=== PATIENT | female | born 1955 ===

== ENCOUNTER 2016-08-17 12:34 | Inpatient (IN) | payer MEDICARE, MEDICAID ==
--- NOTE | 2016-08-17 12:58 | C.PDOC ---
Chief Complaint (Nursing): Weakness/Neurological Deficit Past Medical History - Medical History PMH: Arthritis, Asthma, Depression, HTN, Rheumatoid Arthritis Surgical History: Appendectomy, Cholecystectomy, Tonsillectomy - [facility] Procedures TETANUS TOXOID ADMINIST (08/10/14) Family History: States: Unknown Family Hx - Social History Hx Tobacco Use: No Hx Alcohol Use: No Hx Substance Use: No - Immunization History Hx Tetanus Toxoid Vaccination: No Hx Influenza Vaccination: No Hx Pneumococcal Vaccination: Yes
[2016-08-17] MEDS ORDERED: DiphenhydrAMINE 50 mg/ml Inj IVP STA (13:08)
--- NOTE | 2016-08-17 13:12 | C.PDOC ---
History Of Present Illness 61 yr old female with PMHx of HTN, presents to the ER with complaints of headache, blurry vision and left arm numbness since 10am this morning. Patient also complains of a mild headache last night. Denies fever, chest pain, SOB, nausea, vomiting or pain. Time Seen by Provider: 08/17/16 13:02 Chief Complaint (Nursing): Weakness/Neurological Deficit History Per: Patient History/Exam Limitations: no limitations Onset/Duration Of Symptoms: Sudden Onset (Since 10am ) Current Symptoms Are (Timing): Still Present Past Medical History Reviewed: Historical Data, Nursing Documentation, Vital Signs Vital Signs: Last Vital Signs Temp 98.2 F 08/17/16 13:07 Pulse 69 08/17/16 14:07 Resp 18 08/17/16 14:07 BP 127/76 08/17/16 14:07 Pulse Ox 97 08/17/16 14:17 - Medical History PMH: Arthritis, Asthma, Depression, HTN, Rheumatoid Arthritis Surgical History: Appendectomy, Cholecystectomy, Tonsillectomy - [facility] Procedures TETANUS TOXOID ADMINIST (08/10/14) Family History: States: No Known Family Hx - Social History Hx Tobacco Use: No Hx Alcohol Use: No Hx Substance Use: No - Immunization History Hx Tetanus Toxoid Vaccination: No Hx Influenza Vaccination: No Hx Pneumococcal Vaccination: Yes Review Of Systems Except As Marked, All Systems Reviewed And Found Negative. Constitutional: Negative for: Fever Eyes: Positive for: Vision Change (Blurry vision ) Cardiovascular: Negative for: Chest Pain Respiratory: Negative for: Shortness of Breath Gastrointestinal: Negative for: Nausea, Vomiting Musculoskeletal: Positive for: Other ((+) Left arm numbness. ) Neurological: Positive for: Headache. Negative for: Weakness, Numbness Physical Exam - Physical Exam Appears: Non-toxic, No Acute Distress Skin: Warm, Dry, No Rash Head: Atraumatic, Normacephalic Eye(s): bilateral: Normal Inspection, PERRL, EOMI Oral Mucosa: Moist Chest: Symmetrical, No Tenderness Cardiovascular: Rhythm Regular, No Murmur Respiratory: Normal Breath Sounds, No Rales, No Rhonchi, No Stridor, No Wheezing Extremity: Normal ROM, No Swelling Neurological/Psych: Oriented x3, Normal Speech, Normal Motor ED Course And Treatment - Laboratory Results Result Diagrams: 08/17/16 13:28 08/17/16 13:28 ECG: Interpreted By Me, Viewed By Me ECG Rhythm: Sinus Rhythm ECG Interpretation: Normal Interpretation Of ECG: No ST/T wave changes. Rate From EC (BPM) O2 Sat by Pulse Oximetry: 97 (RA ) Pulse Ox Interpretation: Normal - CT Scan/US CT - Head Other Rad Studies (CT/US): Read By Radiologist, Radiology Report Reviewed CT/US Interpretation: PROCEDURE: CT HEAD WITHOUT CONTRAST. HISTORY: Code stroke. COMPARISON: None available. TECHNIQUE: Axial computed tomography images were obtained through the head/brain without intravenous contrast. Radiation dose: Total exam DLP = 906 mGy-cm. This CT exam was performed using one or more of the following dose reduction techniques: Automated exposure control, adjustment of the mA and/or kV according to patient size, and/or use of iterative reconstruction technique. FINDINGS: HEMORRHAGE: No intracranial hemorrhage. BRAIN: No mass effect or edema. Scattered focal lucencies in the subcortical and periventricular white matter suggestive for chronic microvascular ischemic change. VENTRICLES: Unremarkable. No hydrocephalus. CALVARIUM: Unremarkable. PARANASAL SINUSES: Unremarkable as visualized. No significant inflammatory changes. MASTOID AIR CELLS: Unremarkable as visualized. No inflammatory changes. OTHER FINDINGS: None. IMPRESSION: Chronic microvascular ischemic changes. No evidence for acute intracranial hemorrhage. If focal neurologic deficit persists, consider MRI. These findings were discussed with doctor Agosto at 1:09 p.m. on 08/17/2016. NIHSS Stroke Scale - Date/Time Evaluation Performed Date Performed: 08/17/16 - How Severe is the Stoke Level of Consciousness: 0=Alert LOC to Questions: 0=Both comments correct LOC to commands: 0=Obeys both correctly Best Gaze: 0=Normal Visual: 0=No visual loss Facial: 0=Normal Motor Arm - Left: 0=No drift Motor Arm - Right: 0=No drift Motor Leg - Left: 0=No drift Motor Leg - Right: 0=No drift Limb Ataxia: 0=Absent Sensory: 1=Mild to moderate loss Best Language: 0=No aphasia Dysarthia: 0=Normal articulation Extinction & Inattention (Neglect): 0=Normal, no object Score: 1 Severity Of Stroke: 0= No Stroke rTPA Inclusion/Exclusion - Refusal of Treatment Patient Refused Treatment: No - Inclusion Criteria for Altepase Patient is 18 years or Older: Yes The Clinical Diagnosis of Ischemic Stroke That is Causing a Potentially Disabling Neurological Deficit: No Time of Onset is Well Established to be Less Than 270 Minute Before Treatment Would Begin: Yes Risk/Benefit Discussed With Patient/Family Member Present: Yes Medical Decision Making Medical Decision Making: ro cva - cdose stroke PLAN: * CT - Head * CXR * EKG * CBC * CMP * Troponin * Urinalysis * Benadryl IVP * Reglan IVP 200: discussed with dr verdin. no low nih, not tpa candidate. pt reports symptoms resolving. ass held as allergy. Disposition - Disposition Disposition: HOSPITALIZED Disposition Time: 14:16 Condition: STABLE - Clinical Impression Clinical Impression: Blurry vision, Numbness, UTI (urinary tract infection) - Scribe Statement The provider has reviewed the documentation as recorded by the Dgibgabo Laboy Provider Attestation: All medical record entries made by the Dgibe were at my direction and personally dictated by me. I have reviewed the chart and agree that the record accurately reflects my personal performance of the history, physical exam, medical decision making, and the department course for this patient. I have also personally directed, reviewed, and agree with the discharge instructions and disposition.
--- NOTE | 2016-08-17 13:15 | CT ---
PROCEDURE: CT HEAD WITHOUT CONTRAST. HISTORY: Code stroke COMPARISON: None available. TECHNIQUE: Axial computed tomography images were obtained through the head/brain without intravenous contrast. Radiation dose: Total exam DLP = 906 mGy-cm. This CT exam was performed using one or more of the following dose reduction techniques: Automated exposure control, adjustment of the mA and/or kV according to patient size, and/or use of iterative reconstruction technique. FINDINGS: HEMORRHAGE: No intracranial hemorrhage. BRAIN: No mass effect or edema. Scattered focal lucencies in the subcortical and periventricular white matter suggestive for chronic microvascular ischemic change. VENTRICLES: Unremarkable. No hydrocephalus. CALVARIUM: Unremarkable. PARANASAL SINUSES: Unremarkable as visualized. No significant inflammatory changes. MASTOID AIR CELLS: Unremarkable as visualized. No inflammatory changes. OTHER FINDINGS: None. IMPRESSION: Chronic microvascular ischemic changes. No evidence for acute intracranial hemorrhage. If focal neurologic deficit persists, consider MRI. These findings were discussed with doctor Agosto at 1:09 p.m. on 08/17/2016.
[2016-08-17] MEDS ORDERED: DiphenhydrAMINE 50 mg/ml Inj ONE ×2 (13:35→13:37)
[2016-08-17 13:38] LABS: BASO # 0.1 K/uL (0.0-0.2); BASO % 1.1 % (0.0-2.0); EOS # 0.1 K/uL (0.0-0.7); EOS % 0.9 % (0.0-4.0); HEMOGLOBIN 12.7 g/dL (11.0-16.0); LYMPH # 2.4 K/uL (1.0-4.3); LYMPH % 32.9 % (20.0-40.0); MEAN CELL VOLUME 93.4 fL (81.0-99.0); MEAN CORPUSCULAR HEMOGLOBIN 31.5 pg (27.0-31.0); MEAN CORPUSCULAR HGB CONC 33.8 g/dL (33.0-37.0); MEAN PLATELET VOLUME 8.5 fL (7.2-11.7); MONO # 0.4 K/uL (0.0-0.8); MONO % 5.6 % (0.0-10.0); NEUT # 4.3 K/uL (1.8-7.0); NEUT % 59.5 % (50.0-75.0); RBC 4.02 Mil/uL (3.80-5.20); RED CELL DISTRIBUTION WIDTH 13.5 % (11.5-14.5); WHITE BLOOD COUNT 7.3 K/uL (4.8-10.8)
[2016-08-17 13:43] LABS: SQUAMOUS EPITHIAL 5 /hpf (0-5); URINE BACTERIA FEW (<OCC); URINE BILIRUBIN NEGATIVE (NEGATIVE); URINE BLOOD NEGATIVE (NEGATIVE); URINE CLARITY Hazy (Clear); URINE COLOR Straw (YELLOW); URINE GLUCOSE (UA) NORMAL (Normal); URINE LEUKOCYTE ESTERASE 2+ Leu/uL (Negative); URINE NITRATE NEGATIVE (NEGATIVE); URINE PROTEIN NEGATIVE (NEGATIVE); URINE UROBILINOGEN NORMAL mg/dL (0.2-1.0)
[2016-08-17 13:49] LABS: PROTHROMBIN TIME 11.3 SECONDS (9.7-12.2)
[2016-08-17] MEDS ORDERED: Ciprofloxacin 400mg/200ml D5W 400 MG/200 ML BAG IVPB STA (13:54)
[2016-08-17 13:55] LABS: ALBUMIN 3.7 g/dL (3.5-5.0)
[2016-08-17 13:58] LABS: ALB/GLOB RATIO 1.1 (1.0-2.1); AST/SGOT 25 U/L (14-36); GFR AFRICAN-AMERICAN > 60; GFR NON-AFRICAN AMERICAN > 60
[2016-08-17 13:59] LABS: ALT/SGPT 20 U/L (9-52); BLOOD UREA NITROGEN 16 mg/dL (7-17); CALCIUM 9.1 mg/dl (8.6-10.4); HDL CHOLESTEROL 32 mg/dL (30-70)
[2016-08-17 14:10] LABS: LDL CHOLESTEROL 111 mg/dL (0-129)
[2016-08-17] MEDS ORDERED: Ciprofloxacin 400mg/200ml D5W 400 MG/200 ML BAG IVPB ONE (14:16)
--- NOTE | 2016-08-17 14:52 | CP.PCM.CON ---
History of Present Illness - History of Present Illness History of Present Illness: HAD FRONTAL HEADACHE LAST NIGHT AND WOKE UP WITH BLURRED VISION AND RIGHT ARM TINGLING NEW EPISODE NO HX MIGRAINE SYMPTOMS RESOLVED CODE STROKE WAS CALLED AND CAT WAS NEGATIVE Past Patient History - Infectious Disease Hx of Infectious Diseases: None - Past Social History Smoking Status: Never Smoked - CARDIAC Hx Cardiac Disorders: No Hx Angina: No Hx Atrial Fibrillation: No Hx Heart Attack: No Hx Hypertension: Yes - PULMONARY Hx Asthma: Yes - NEUROLOGICAL Hx Neurological Disorder: No Hx Migraine: No - ENDOCRINE/METABOLIC Hx Diabetes Mellitus Type 2: No (PRE DIABETIC ) - MUSCULOSKELETAL/RHEUMATOLOGICAL Hx Arthritis: Yes Hx Degenerative Joint Disease: Yes (RA) Hx Rheumatoid Arthritis: Yes - PSYCHIATRIC Hx Anxiety: Yes Hx Depression: Yes Hx Substance Use: No - SURGICAL HISTORY Hx Appendectomy: Yes Hx Carotid Endarterectomy: No Hx Cholecystectomy: Yes Hx Tonsillectomy: Yes - ANESTHESIA Hx Anesthesia: Yes Hx Anesthesia Reactions: No Meds Allergies/Adverse Reactions: Allergies Allergy/AdvReac Type Severity Reaction Status Date / Time acetaminophen [From Percocet] Allergy Verified 08/17/16 12:47 aspirin Allergy Verified 08/17/16 12:47 ceftriaxone Allergy Verified 08/17/16 12:47 oxycodone [From Percocet] Allergy Verified 08/17/16 12:47 Penicillins Allergy Verified 08/17/16 12:47 - Medications Medications: Current Medications Clopidogrel Bisulfate (Plavix) 75 mg PO STAT STA Stop: 08/17/16 14:48 Famotidine (Pepcid) 20 mg PO BID [facility] Heparin Sodium (Porcine) (Heparin) 5,000 units SC Q8 VERO Ciprofloxacin (Cipro 400mg/200ml Dsw) 400 mg in 200 mls @ 133 mls/hr IVPB STAT STA Stop: 08/17/16 15:24 Last Admin: 08/17/16 14:22 Dose: 133 mls/hr Physical Exam - Constitutional Appears: Well - Head Exam Head Exam: ATRAUMATIC, NORMAL INSPECTION - Eye Exam Eye Exam: EOMI, Normal appearance, PERRL Pupil Exam: NORMAL ACCOMODATION - Respiratory Exam Respiratory Exam: NORMAL BREATHING PATTERN - Cardiovascular Exam Cardiovascular Exam: REGULAR RHYTHM - Expanded Neurological Exam Expanded Patient oriented to: person, place, time Cranial nerves: EOM's Intact: Normal, Facial Palsey w/Forehead Movement: Normal , Facial Palsey w/o Forehead Movement: Normal, Facial Sensation: Normal, Gag Reflex: Normal, Nystagmus: Normal, Tongue Deviation: Normal Ataxia: No Cerebellar Function: Finger to Nose: Normal, Romberg: Normal Upper motor neuron: Babinski Sign: Normal, Noel Neglect: Normal, Pronator Drift : Normal, Sensory Extinction: Normal Sensory exam: Lower Extremity Temperature: Abnormal Right, Abnormal Left ( NEUROPATHY) Neuro motor strength exam: Left Upper Extremity: 5, Right Upper Extremity: 5, Left Lower Extremity: 5, Right Lower Extremity: 5 DTR: Achilles Tendon Left: 0, Achilles Tendon Right: 0, Bicep Left: 1+, Bicep Right: 1+, Brachioradialis Left: 1+, Brachioradialis Right: 1+, Patellar Left: 1 +, Patellar Right: 1+, Tricep Left: 1+, Tricep Right: 1+ Results - Vital Signs Recent Vital Signs: Last Vital Signs Temp 98.2 F 08/17/16 13:07 Pulse 69 08/17/16 14:07 Resp 18 08/17/16 14:07 BP 127/76 08/17/16 14:07 Pulse Ox 97 08/17/16 14:34 - Labs Result Diagrams: 08/17/16 13:28 08/17/16 13:28 - Imaging and Cardiology CT scan - head Additional comment: NEGATIVE FOR ACUTE BLEED Assessment & Plan - Assessment and Plan (Free Text) Assessment: TIA - LEFT CEREBRAL DYSFUNCTION PLAVIX DIABETIC AND WEIGHT CONTROL DO MRI AND CAROTID /ECHO OBSERVATION X24 HRS IF STABLE MEDICALLY DC HOME AM AND FOLLOW UP AN OP DISCUSSED WITH RESIDENT
--- NOTE | 2016-08-17 14:58 | CP.PCM.HP ---
Addendum entered and electronically signed by Donald Cruz DO 08/18/16 07:19: NIH Stroke scale: Level of Consciousness: 0=Alert LOC to Questions: 0=Both comments correct LOC to commands: 0=Obeys both correctly Best Gaze: 0=Normal Visual: 0=No visual loss Facial: 0=Normal Motor Arm - Left: 0=No drift Motor Arm - Right: 0=No drift Motor Leg - Left: 0=No drift Motor Leg - Right: 0=No drift Limb Ataxia: 0=Absent Sensory: 0=No loss Best Language: 0=No aphasia Dysarthia: 0=Normal articulation Extinction & Inattention (Neglect): 0=Normal, no object Score: 0 Severity Of Stroke: 0= No Stroke Neuro examination: EOMI, PERRLA CN II-XII grossly intact Motor strength 5/5 in UE and LE Sensation intact in UE and LE Deep tendon reflexes intact 2/5 Babinski test negative No pronator drift, rapid hand movement normal heel to lofton normal, gait normal Original Note: <Donald Cruz - Last Filed: 08/17/16 20:14> History of Present Illness - History of Present Illness History of Present Illness: cc: "left arm numbness" HPI: Patient is a 61 year old female with PMHx of hypertension, heart murmur, depression and asthma, presenting to the ED complaining of a headache that started last night.She said she was able to sleep, but this morning the headache got worse. She states that this morning, around 10am, her left arm started feeling numb and heavy, like it was sleeping. She says both symptoms resolved by the time she came to the ED. She currently has no acute complaints. She denies chest pain, palpitations, dyspnea, blurry vision, difficulty speaking / understanding, gait abnormalities. PMD: Dr. Oswald PMHx: As stated above PSHx: appendectomy, cholecystectomy, tubal ligation, Allergies: acetaminophen, aspirin, ceftriaxone, oxycodone, morphine, penicillin , 4 types of antihypertensives (patient does not know which) Fam hx: father- DM, mother- alzheimers social: denies smoking, alcohol, drug hx. unemployed. Present on Admission - Present on Admission Any Indicators Present on Admission: No Review of Systems - Constitutional Constitutional: absent: Anorexia, Chills, Weight Loss - EENT Eyes: absent: Blurred Vision, Change in Vision - Cardiovascular Cardiovascular: absent: Chest Pain, Claudication, Irregular Heart Rhythm, Leg Edema, Palpitations, Pedal Edema - Respiratory Respiratory: absent: Cough, Dyspnea, Hemoptysis, Wheezing - Gastrointestinal Gastrointestinal: absent: Abdominal Pain, Constipation, Dyspepsia, Melena, Nausea, Temesmus - Genitourinary Genitourinary: absent: Difficulty Urinating, Dysuria, Flank Pain - Musculoskeletal Musculoskeletal: absent: Atrophy, Myalgias, Numbness, Tingling - Integumentary Integumentary: absent: Skin Ulcer, Sores, Striae, Swelling, Wounds - Neurological Neurological: absent: Abnormal Movements, Tingling, Tremor, Weakness - Psychiatric Psychiatric: absent: Anhedonia, Mood Swings, Panic Attacks, Suicidal Ideation, Tactile Hallucinations - Endocrine Endocrine: absent: Fatigue, Palpitations Past Patient History - Infectious Disease Hx of Infectious Diseases: None - Past Social History Smoking Status: Never Smoked Chewing Tobacco Use: No Cigar Use: No Alcohol: None Drugs: Denies - CARDIAC Hx Hypertension: Yes - PULMONARY Hx Asthma: Yes - MUSCULOSKELETAL/RHEUMATOLOGICAL Hx Arthritis: Yes Hx Rheumatoid Arthritis: Yes - PSYCHIATRIC Hx Depression: Yes Hx Substance Use: No - SURGICAL HISTORY Hx Appendectomy: Yes Hx Cholecystectomy: Yes Hx Tonsillectomy: Yes - ANESTHESIA Hx Anesthesia: Yes Hx Anesthesia Reactions: No Meds Allergies/Adverse Reactions: Allergies Allergy/AdvReac Type Severity Reaction Status Date / Time acetaminophen [From Percocet] Allergy Verified 08/17/16 12:47 aspirin Allergy Verified 08/17/16 12:47 ceftriaxone Allergy Verified 08/17/16 12:47 oxycodone [From Percocet] Allergy Verified 08/17/16 12:47 Penicillins Allergy Verified 08/17/16 12:47 Physical Exam - Constitutional Appears: Non-toxic, No Acute Distress - Head Exam Head Exam: ATRAUMATIC, NORMAL INSPECTION, NORMOCEPHALIC - Eye Exam Pupil Exam: NORMAL ACCOMODATION, PERRL - ENT Exam ENT Exam: Mucous Membranes Moist - Neck Exam Neck exam: Positive for: Normal Inspection - Respiratory Exam Respiratory Exam: Clear to Auscultation Bilateral, NORMAL BREATHING PATTERN. absent: Prolonged Expiratory Phase, Rales, Rhonchi, Wheezes - Cardiovascular Exam Cardiovascular Exam: REGULAR RHYTHM, +S1, +S2 - GI/Abdominal Exam GI & Abdominal Exam: Normal Bowel Sounds, Soft. absent: Distended, Firm, Guarding, Hernia, Tenderness - Extremities Exam Extremities exam: Positive for: normal capillary refill, pedal pulses present - Neurological Exam Neurological exam: Alert, CN II-XII Intact, Oriented x3 - Psychiatric Exam Psychiatric exam: Normal Affect, Normal Mood - Skin Skin Exam: Dry, Intact, Normal Color, Warm Results - Vital Signs Recent Vital Signs: Last Vital Signs Temp 98.2 F 08/17/16 13:07 Pulse 69 08/17/16 14:07 Resp 18 08/17/16 14:07 BP 127/76 08/17/16 14:07 Pulse Ox 97 08/17/16 14:34 - Labs Result Diagrams: 08/17/16 13:28 08/17/16 13:28 Assessment & Plan (1) TIA (transient ischemic attack) Status: Acute Comment: Consult Neuro- Dr. Robles. CT Head- 08/17/16- Chronic microvascular ischemic changes. No evidence of acute intracranial hemorrhage (Please see full report). MRI Brain- there are multiple small focal areas of increased T2 signal scattered about the deep and subcortical white matter as well as both basal nuclei. Uncertain etiology. Mild generalized volume loss (Please see full report). f/u carotid dopplers. f/u 2d echo. Started on Plavix 75mg PO Daily. Start Crestor 2.5 Q2d. f/u ROMIs/EKGs x 2. 1st MICHAELA negative, EKG NSR (2) History of hypertension Status: Acute Comment: Blood pressure is controlled. Will continue to monitor. Patient reported allergies to four medications, but is unsure of what their names are. (3) Asthma Status: Acute Comment: Albuterol Q6h PRN (4) Depression Status: Acute Comment: Paroxetine 60mg PO Daily (5) Prophylactic measure Status: Acute Comment: Pepcid 20mg PO BID. Heparin 5000U SC Q8h. SCDs <Elle Thornton V - Last Filed: 08/18/16 13:43> Results - Vital Signs Recent Vital Signs: Last Vital Signs Temp 97.8 F 08/18/16 08:51 Pulse 68 08/18/16 08:51 Resp 20 08/18/16 08:51 BP 112/75 08/18/16 08:51 Pulse Ox 96 08/18/16 08:51 - Labs Result Diagrams: 08/18/16 07:56 08/18/16 07:56 Labs: Laboratory Results - last 24 hr 08/17/16 08/17/16 08/17/16 14:38 16:30 16:30 WBC RBC Hgb Hct MCV MCH MCHC RDW Plt Count MPV Neut % (Auto) Lymph % (Auto) Mclennan % (Auto) Eos % (Auto) Baso % (Auto) Neut # Lymph # Mclennan # Eos # Baso # ESR 29 H Sodium Potassium Chloride Carbon Dioxide Anion Gap BUN Creatinine Est GFR ( Amer) Est GFR (Non-Af Amer) POC Glucose (mg/dL) Random Glucose Hemoglobin A1c 5.9 Calcium Magnesium Total Bilirubin AST ALT Alkaline Phosphatase Total Creatine Kinase CK-MB (Mass) Troponin I, Quant Total Protein Albumin Globulin Albumin/Globulin Ratio Vitamin B12 Folate Homocysteine Free T4 TSH 3rd Generation Rheum Arthritis Panel Negative RPR Nonreactive 08/17/16 08/17/16 08/17/16 16:30 16:30 21:11 WBC RBC Hgb Hct MCV MCH MCHC RDW Plt Count MPV Neut % (Auto) Lymph % (Auto) Mclennan % (Auto) Eos % (Auto) Baso % (Auto) Neut # Lymph # Mclennan # Eos # Baso # ESR Sodium Potassium Chloride Carbon Dioxide Anion Gap BUN Creatinine Est GFR ( Amer) Est GFR (Non-Af Amer) POC Glucose (mg/dL) Random Glucose Hemoglobin A1c Calcium Magnesium Total Bilirubin AST ALT Alkaline Phosphatase Total Creatine Kinase 60 CK-MB (Mass) 0.36 Troponin I, Quant < 0.0120 Total Protein Albumin Globulin Albumin/Globulin Ratio Vitamin B12 731 Folate 7.7 Homocysteine 12.6 Free T4 1.02 TSH 3rd Generation 3.67 Rheum Arthritis Panel RPR 08/18/16 08/18/16 08/18/16 05:54 07:56 07:56 WBC 7.3 RBC 3.99 Hgb 12.5 Hct 37.6 MCV 94.3 MCH 31.3 H MCHC 33.2 RDW 13.5 Plt Count 253 MPV 8.4 Neut % (Auto) 51.4 Lymph % (Auto) 41.3 H Mclennan % (Auto) 5.4 Eos % (Auto) 1.5 Baso % (Auto) 0.4 Neut # 3.7 Lymph # 3.0 Mclennan # 0.4 Eos # 0.1 Baso # 0.0 ESR Sodium 140 Potassium 4.0 Chloride 106 Carbon Dioxide 27 Anion Gap 10 BUN 12 Creatinine 0.7 Est GFR ( Amer) > 60 Est GFR (Non-Af Amer) > 60 POC Glucose (mg/dL) Random Glucose 87 Hemoglobin A1c Calcium 8.8 Magnesium 2.1 Total Bilirubin 0.6 AST 19 ALT 21 Alkaline Phosphatase 79 Total Creatine Kinase 54 CK-MB (Mass) 0.25 Troponin I, Quant < 0.0120 Total Protein 6.2 L Albumin 3.2 L Globulin 3.1 Albumin/Globulin Ratio 1.0 Vitamin B12 Folate Homocysteine Free T4 TSH 3rd Generation 1.49 Rheum Arthritis Panel RPR 08/18/16 12:01 WBC RBC Hgb Hct MCV MCH MCHC RDW Plt Count MPV Neut % (Auto) Lymph % (Auto) Mclennan % (Auto) Eos % (Auto) Baso % (Auto) Neut # Lymph # Mclennan # Eos # Baso # ESR Sodium Potassium Chloride Carbon Dioxide Anion Gap BUN Creatinine Est GFR ( Amer) Est GFR (Non-Af Amer) POC Glucose (mg/dL) 105 Random Glucose Hemoglobin A1c Calcium Magnesium Total Bilirubin AST ALT Alkaline Phosphatase Total Creatine Kinase CK-MB (Mass) Troponin I, Quant Total Protein Albumin Globulin Albumin/Globulin Ratio Vitamin B12 Folate Homocysteine Free T4 TSH 3rd Generation Rheum Arthritis Panel RPR Attending/Attestation - Attestation I have personally seen and examined this patient.: Yes I have fully participated in the care of the patient.: Yes I have reviewed all pertinent clinical information: Yes Notes (Text): This is late computer entry for 08/17/16. Patient seen, examined, and case discussed with day-time resident. patient seem, examined on at approximately 5:30PM following completion of Brain MRI. Patient seen, and evaluated by neurology in the emergency room Patient completed Brain MRI yesterday. Patient ordered for echo and cartoid duplex, likely wont be completed until Friday. Patient has multiple drug allergies including tylenol, aspirin, rocephin, oxycodone, and pencillin. Patient also reports she has allergies to anti- hypertensives but cannot remember their names. Per neurology, patient recommended to start Plavix. Patient denies any bleeding problems and denies allergies to Plavix. Assessment/Plan (1) TIA (transient ischemic attack) Status: Acute Comment: Consult Neurolog- Dr. Robles-->help appreciated CT Head (08/17/16)- Chronic microvascular ischemic changes. No evidence of acute intracranial hemorrhage (Please see full report). MRI Brain (08/17/16)- there are multiple small focal areas of increased T2 signal scattered about the deep and subcortical white matter as well as both basal nuclei. Uncertain etiology. Mild generalized volume loss (Please see full report ). Ordered for f/u carotid dopplers. f/u 2d echo. Started on Plavix 75mg PO Daily. Start Crestor 2.5 Q2day per recommendation by neurology. f/u ROMIs/EKGs x 2, q 6hours. 1st MICHAELA negative, EKG NSR (2) History of hypertension Status: Chronic Comment: Blood pressure is controlled. Will continue to monitor. Patient reported allergies to four medications, but is unsure of what their names are. (3) Asthma Status: Chronic Comment: Albuterol Q6h PRN shortness of breathe Patient is not exacerbation (4) Depression Status: Chronic Comment: Patient reports she takes (1) 40mg tab and (1) 60mg PO tab together at night. Patient given max dose of 60mg to start until we confirm her medication list Paroxetine 60mg PO Daily Patient's depression is stable. Denies HI/denies SI. (5) Prophylactic measure Status: Acute Comment: Pepcid 20mg PO BID for GI ppx Heparin 5000U SC Q8h for DVT ppx SCDs b/l
--- NOTE | 2016-08-17 15:40 | RAD ---
HISTORY: code stroke COMPARISON: 07/31/2013 FINDINGS: LUNGS: Mild venous congestion. Right hilar prominence. Patchy increased markings at the left lung base. PLEURA: As above. CARDIOVASCULAR: Normal. OSSEOUS STRUCTURES: No significant abnormalities. VISUALIZED UPPER ABDOMEN: Normal. OTHER FINDINGS: None. IMPRESSION: Mild venous congestion. Right hilar prominence. Patchy increased markings at the left lung base.
--- NOTE | 2016-08-17 16:09 | MRI ---
PROCEDURE: MRI BRAIN WITHOUT CONTRAST HISTORY: stroke - left subcortical COMPARISON: Comparison made with prior CT scan of the brain dated 08/17/2016 TECHNIQUE: Multiplanar, multisequence MR images of the brain were obtained without intravenous contrast enhancement. Study is somewhat limited by motion artifact. FINDINGS: HEMORRHAGE: No acute parenchymal, subarachnoid or extra-axial hemorrhage. No evidence of hemosiderin deposition identified on gradient echo weighted sequence. DWI: No evidence of an acute or early subacute infarction seen on diffusion imaging. . BRAIN PARENCHYMA: Multiple round/elliptical shaped small focal areas of increased T2 signal seen scattered about the deep and subcortical white matter and basal nuclei both cerebral hemispheres. At additionally, slightly confluent prolonged T2 signal changes seen in the periventricular white matter most conspicuous in the right periventricular frontal horn white matter. Findings are nonspecific though could represent chronic sequela of small vessel disease. Rule out sequela of old trauma, migraine headaches, post infectious/ inflammatory or atypical presentation of a demyelinating disease process. Mild generalized volume loss Partially empty sella. VENTRICLES: No evidence of obstructive hydrocephalus CRANIUM: Unremarkable. ORBITS: Grossly unremarkable. PARANASAL SINUSES/MASTOIDS: Clear VASCULAR SYSTEM: Visualized major vascular flow voids at skull base are patent. OTHER FINDINGS: None. IMPRESSION: There are multiple small focal areas of increased T2 signal scattered about the deep and subcortical white matter as well both basal nuclei. Findings are of uncertain etiology though could represent chronic sequela of small vessel disease. Rule out sequela of old trauma, migraine headaches, post infectious/ inflammatory or atypical presentation of a demyelinating disease process. Mild generalized volume loss.
[2016-08-17 17:14] LABS: FREE T4 1.02 ng/dL (0.78-2.19)
[2016-08-17] MEDS ORDERED: Albuterol 0.083% Inhal Sol (2.5 mg/3 mL) UD INH PRN (17:21)
[2016-08-17 18:04] LABS: FOLATE 7.7 ng/mL
[2016-08-17 19:11] LABS: RAPID PLASMA REAGIN NONREACTIVE (NONREACTIVE)
[2016-08-17 21:40] LABS: CK-MB 0.36 ng/mL (0.0-3.38)
[2016-08-17] MEDS: Rosuvastatin Calcium 2.5 mg Tab PO SCH (22:22)
[2016-08-18 06:21] LABS: CK-MB 0.25 ng/mL (0.0-3.38)
[2016-08-18 08:12] LABS: BASO % 0.4 % (0.0-2.0); EOS # 0.1 K/uL (0.0-0.7); EOS % 1.5 % (0.0-4.0); HEMOGLOBIN 12.5 g/dL (11.0-16.0); LYMPH % 41.3 % (20.0-40.0); MEAN CELL VOLUME 94.3 fL (81.0-99.0); MEAN CORPUSCULAR HEMOGLOBIN 31.3 pg (27.0-31.0); MEAN CORPUSCULAR HGB CONC 33.2 g/dL (33.0-37.0); MEAN PLATELET VOLUME 8.4 fL (7.2-11.7); MONO # 0.4 K/uL (0.0-0.8); MONO % 5.4 % (0.0-10.0); NEUT # 3.7 K/uL (1.8-7.0); NEUT % 51.4 % (50.0-75.0); NRBC % 0.1 % (0.0-2.0); RBC 3.99 Mil/uL (3.80-5.20); RED CELL DISTRIBUTION WIDTH 13.5 % (11.5-14.5); WHITE BLOOD COUNT 7.3 K/uL (4.8-10.8)
[2016-08-18 08:24] LABS: ALBUMIN 3.2 g/dL (3.5-5.0)
[2016-08-18 08:27] LABS: ALT/SGPT 21 U/L (9-52); AST/SGOT 19 U/L (14-36); BLOOD UREA NITROGEN 12 mg/dL (7-17); GFR AFRICAN-AMERICAN > 60; GFR NON-AFRICAN AMERICAN > 60
[2016-08-18 08:28] LABS: CALCIUM 8.8 mg/dl (8.6-10.4); MAGNESIUM 2.1 mg/dL (1.6-2.3)
--- NOTE | 2016-08-18 15:19 | CP.PCM.PN ---
Subjective - Date & Time of Evaluation Date of Evaluation: 08/18/16 Time of Evaluation: 14:30 - Subjective Subjective: SEEN WITH HER FRIEND MILD HEADACHE 5/10 FEW HOURS AGO OTHER MARQUES NO SYMPTOMS EXAM UNCHANGED WORK UP SMALL VESSEL DISEASE ? ON PLAVIX BP, WEIGHT, SUGAR CONTROL BEEN DISCUSSED MEDICALLY STABLE SHE CAN BE DC AND FOLLOW UP OP Objective - Vital Signs/Intake and Output Vital Signs (last 24 hours): Temp Pulse Resp BP Pulse Ox 97.8 F 68 20 112/75 96 08/18/16 08:51 08/18/16 08:51 08/18/16 08:51 08/18/16 08:51 08/18/16 08:51 - Medications Medications: Current Medications Albuterol Sulfate (Albuterol 0.083% Inhal Ronda (2.5 Mg/3 Ml) Ud) 2.5 mg INH RQ6 PRN PRN Reason: Shortness of Breath Clopidogrel Bisulfate (Plavix) 75 mg PO DAILY [facility] Last Admin: 08/18/16 09:29 Dose: 75 mg Famotidine (Pepcid) 20 mg PO BID [facility] Last Admin: 08/18/16 09:27 Dose: 20 mg Heparin Sodium (Porcine) (Heparin) 5,000 units SC Q8 [facility] Last Admin: 08/18/16 14:22 Dose: 5,000 units Paroxetine HCl (Paxil) 60 mg PO DAILY [facility] Last Admin: 08/18/16 09:29 Dose: Not Given Rosuvastatin Calcium (Crestor) 2.5 mg PO Q48H [facility] Last Admin: 08/17/16 22:22 Dose: 2.5 mg - Labs Labs: 08/18/16 07:56 08/18/16 07:56 PT 11.3 SECONDS (9.7-12.2) 08/17/16 13:28 INR 1.0 08/17/16 13:28 APTT 31 SECONDS (21-34) 08/17/16 13:28
--- NOTE | 2016-08-18 17:11 | CP.PCM.PN ---
<Donald Cruz - Last Filed: 08/18/16 17:11> Subjective - Date & Time of Evaluation Date of Evaluation: 08/18/16 Time of Evaluation: 08:10 - Subjective Subjective: Medicine Note- hospitalist service Patient was seen and exmained at bedside. Patient reports she has a mild headache at the moment. Otherwise no acute complaints. Patient reports she slept well, no events overnight. Objective - Vital Signs/Intake and Output Vital Signs (last 24 hours): Temp Pulse Resp BP Pulse Ox 97.8 F 98 H 20 112/75 96 08/18/16 08:51 08/18/16 16:00 08/18/16 08:51 08/18/16 08:51 08/18/16 08:51 - Medications Medications: Current Medications Albuterol Sulfate (Albuterol 0.083% Inhal Ronda (2.5 Mg/3 Ml) Ud) 2.5 mg INH RQ6 PRN PRN Reason: Shortness of Breath Clopidogrel Bisulfate (Plavix) 75 mg PO DAILY [facility] Last Admin: 08/18/16 09:29 Dose: 75 mg Famotidine (Pepcid) 20 mg PO BID [facility] Last Admin: 08/18/16 09:27 Dose: 20 mg Heparin Sodium (Porcine) (Heparin) 5,000 units SC Q8 [facility] Last Admin: 08/18/16 14:22 Dose: 5,000 units Paroxetine HCl (Paxil) 60 mg PO DAILY [facility] Last Admin: 08/18/16 09:29 Dose: Not Given Rosuvastatin Calcium (Crestor) 2.5 mg PO Q48H [facility] Last Admin: 08/17/16 22:22 Dose: 2.5 mg - Labs Labs: 08/18/16 07:56 08/18/16 07:56 PT 11.3 SECONDS (9.7-12.2) 08/17/16 13:28 INR 1.0 08/17/16 13:28 APTT 31 SECONDS (21-34) 08/17/16 13:28 - Constitutional Appears: Non-toxic, No Acute Distress - Head Exam Head Exam: ATRAUMATIC, NORMAL INSPECTION, NORMOCEPHALIC - Eye Exam Pupil Exam: NORMAL ACCOMODATION, PERRL - ENT Exam ENT Exam: Mucous Membranes Moist - Respiratory Exam Respiratory Exam: Clear to Ausculation Bilateral, NORMAL BREATHING PATTERN. absent: Prolonged Expiratory Phase, Rales, Rhonchi, Wheezes - Cardiovascular Exam Cardiovascular Exam: REGULAR RHYTHM, +S1, +S2 - GI/Abdominal Exam GI & Abdominal Exam: Soft, Normal Bowel Sounds. absent: Guarding, Tenderness, Diminished Bowel Sounds, Hernia, Hyperactive Bowel Sounds, Hypoactive Bowel Sounds - Extremities Exam Extremities Exam: Normal Capillary Refill, Normal Inspection - Neurological Exam Neurological Exam: Alert, Awake, CN II-XII Intact, Oriented x3, Reflexes Normal. absent: Motor Sensory Deficit Neuro motor strength exam: Left Upper Extremity: 5, Right Upper Extremity: 5, Left Lower Extremity: 5, Right Lower Extremity: 5 - Psychiatric Exam Psychiatric exam: Normal Affect, Normal Mood - Skin Skin Exam: Dry, Intact, Normal Color, Warm Assessment and Plan (1) TIA (transient ischemic attack) Status: Acute (2) History of hypertension Status: Acute (3) Asthma Status: Acute (4) Depression Status: Acute (5) Prophylactic measure Status: Acute - Assessment and Plan (Free Text) Assessment: (1) TIA (transient ischemic attack) Status: Acute Comment: Consult Neuro- Dr. Robles. CT Head- 08/17/16- Chronic microvascular ischemic changes. No evidence of acute intracranial hemorrhage (Please see full report). MRI Brain- there are multiple small focal areas of increased T2 signal scattered about the deep and subcortical white matter as well as both basal nuclei. Uncertain etiology. Mild generalized volume loss (Please see full report). f/u carotid dopplers. f/u 2d echo. Started on Plavix 75mg PO Daily. Start Crestor 2.5 Q2d. ROMIs negative x 3 EKG NSR (2) History of hypertension Status: Acute Comment: Blood pressure is controlled. Will continue to monitor. Patient reported allergies to four medications, but is unsure of what their names are. (3) Asthma Status: Acute Comment: Albuterol Q6h PRN (4) Depression Status: Acute Comment: Paroxetine 60mg PO Daily (5) Prophylactic measure Status: Acute Comment: Pepcid 20mg PO BID. Heparin 5000U SC Q8h. SCDs Disposition: Once Echo and carotid dopplers are read and reported normal, patient will be discharged home. <Elle Thornton V - Last Filed: 08/18/16 17:31> Objective - Vital Signs/Intake and Output Vital Signs (last 24 hours): Temp Pulse Resp BP Pulse Ox 98.5 F 98 H 20 112/74 95 08/18/16 15:30 08/18/16 16:00 08/18/16 15:30 08/18/16 15:30 08/18/16 15:30 - Medications Medications: Current Medications Albuterol Sulfate (Albuterol 0.083% Inhal Ronda (2.5 Mg/3 Ml) Ud) 2.5 mg INH RQ6 PRN PRN Reason: Shortness of Breath Clopidogrel Bisulfate (Plavix) 75 mg PO DAILY [facility] Last Admin: 08/18/16 09:29 Dose: 75 mg Famotidine (Pepcid) 20 mg PO BID [facility] Last Admin: 08/18/16 09:27 Dose: 20 mg Heparin Sodium (Porcine) (Heparin) 5,000 units SC Q8 [facility] Last Admin: 08/18/16 14:22 Dose: 5,000 units Paroxetine HCl (Paxil) 60 mg PO DAILY [facility] Last Admin: 08/18/16 09:29 Dose: Not Given Rosuvastatin Calcium (Crestor) 2.5 mg PO Q48H [facility] Last Admin: 08/17/16 22:22 Dose: 2.5 mg - Labs Labs: 08/18/16 07:56 08/18/16 07:56 PT 11.3 SECONDS (9.7-12.2) 08/17/16 13:28 INR 1.0 08/17/16 13:28 APTT 31 SECONDS (21-34) 08/17/16 13:28 Attending/Attestation - Attestation I have personally seen and examined this patient.: Yes I have fully participated in the care of the patient.: Yes I have reviewed all pertinent clinical information, including history, physical exam and plan: Yes Notes (Text): Patient seen, examined and case discussed with day-time resident. Patient seen at bedside. She reports she slept well. Patient denies acute complaints. Patient is pending echocardiogram and cartoid duplex. Pending the results of these imaging; patient is a possible discharge tomorrow. Assessment/Plan (1) TIA (transient ischemic attack) Status: Acute Comment: 08/18: Pending echo and carotid duplex. 2nd and 3rd EKG note not performed; ordered for repeat EKG today; MICHAELA X3 negative; continue Plavix 75mg PO daily; TSH: 1.49, RPR: NR, RA: negative, MADDY 6 pending 08/17: Consult Neurology- Dr. Robles-->help appreciated CT Head (08/17/16)- Chronic microvascular ischemic changes. No evidence of acute intracranial hemorrhage (Please see full report). MRI Brain (08/17/16)- there are multiple small focal areas of increased T2 signal scattered about the deep and subcortical white matter as well as both basal nuclei. Uncertain etiology. Mild generalized volume loss (Please see full report). Ordered for f/u carotid dopplers. f/u 2d echo. Started on Plavix 75mg PO Daily. Start Crestor 2.5 Q2day per recommendation by neurology. f/u ROMIs/EKGs x 2, q 6hours. 1st MICHAELA negative, EKG NSR (2) History of hypertension Status: Chronic Comment: 08/18: Continue current management. Will need to follow-up with pharmacy tomorrow to see which anti-hypertensives patient is allergic to and update in EMR 08/17: Blood pressure is controlled. Will continue to monitor. Patient reported allergies to four medications, but is unsure of what their names are. (3) Asthma Status: Chronic Comment: 08/18 Patient is not in acute exacerbation 08/17 Albuterol Q6h PRN shortness of breathe Patient is not exacerbation (4) Depression Status: Chronic Comment: 08/18 Continue current management. Fol 08/17 Patient reports she takes (1) 40mg tab and (1) 60mg PO tab together at night. Patient given max dose of 60mg to start until we confirm her medication list Paroxetine 60mg PO Daily Patient's depression is stable. Denies HI/denies SI. (5) Asymptomatic bacteriuria 08/18: Patient is not symptomatic of urinary tract infection (6) Prophylactic measure Status: Acute Comment: 08/18 continue current management 08/17 Pepcid 20mg PO BID for GI ppx Heparin 5000U SC Q8h for DVT ppx SCDs b/l
[2016-08-19 06:33] LABS: BASO % 0.5 % (0.0-2.0); EOS # 0.1 K/uL (0.0-0.7); EOS % 1.8 % (0.0-4.0); HEMOGLOBIN 12.7 g/dL (11.0-16.0); LYMPH # 3.6 K/uL (1.0-4.3); LYMPH % 50.6 % (20.0-40.0); MEAN CELL VOLUME 93.5 fL (81.0-99.0); MEAN CORPUSCULAR HEMOGLOBIN 31.9 pg (27.0-31.0); MEAN CORPUSCULAR HGB CONC 34.1 g/dL (33.0-37.0); MEAN PLATELET VOLUME 8.4 fL (7.2-11.7); MONO # 0.4 K/uL (0.0-0.8); MONO % 5.7 % (0.0-10.0); NEUT % 41.4 % (50.0-75.0); RBC 3.97 Mil/uL (3.80-5.20); RED CELL DISTRIBUTION WIDTH 13.7 % (11.5-14.5); WHITE BLOOD COUNT 7.2 K/uL (4.8-10.8)
[2016-08-19 07:17] LABS: ALBUMIN 3.3 g/dL (3.5-5.0)
[2016-08-19 07:20] LABS: ALB/GLOB RATIO 1.1 (1.0-2.1); ALT/SGPT 23 U/L (9-52); AST/SGOT 17 U/L (14-36); BLOOD UREA NITROGEN 11 mg/dL (7-17); GFR AFRICAN-AMERICAN > 60; GFR NON-AFRICAN AMERICAN > 60
--- NOTE | 2016-08-19 07:30 | CP.PCM.PN ---
Subjective - Date & Time of Evaluation Date of Evaluation: 08/19/16 Time of Evaluation: 06:55 - Subjective Subjective: PT MORE ALERT AWAKE SPEECH CLEAR ASYMPTOMATIC SYMPTOMS FREE FOR > 24 HRS STABLE CONTINUE THE RECOMMENDATION F/U PRN Objective - Vital Signs/Intake and Output Vital Signs (last 24 hours): Temp Pulse Resp BP Pulse Ox 97.5 F L 68 20 120/83 18 L 08/19/16 05:35 08/19/16 05:35 08/19/16 00:46 08/19/16 05:35 08/19/16 05:35 - Medications Medications: Current Medications Albuterol Sulfate (Albuterol 0.083% Inhal Ronda (2.5 Mg/3 Ml) Ud) 2.5 mg INH RQ6 PRN PRN Reason: Shortness of Breath Clopidogrel Bisulfate (Plavix) 75 mg PO DAILY [facility] Last Admin: 08/18/16 09:29 Dose: 75 mg Famotidine (Pepcid) 20 mg PO BID [facility] Last Admin: 08/18/16 17:47 Dose: 20 mg Heparin Sodium (Porcine) (Heparin) 5,000 units SC Q8 [facility] Last Admin: 08/19/16 05:28 Dose: 5,000 units Paroxetine HCl (Paxil) 60 mg PO DAILY [facility] Last Admin: 08/18/16 09:29 Dose: Not Given Rosuvastatin Calcium (Crestor) 2.5 mg PO Q48H [facility] Last Admin: 08/17/16 22:22 Dose: 2.5 mg - Labs Labs: 08/18/16 07:56 08/18/16 07:56 PT 11.3 SECONDS (9.7-12.2) 08/17/16 13:28 INR 1.0 08/17/16 13:28 APTT 31 SECONDS (21-34) 08/17/16 13:28
[2016-08-19] MEDS ORDERED: Potassium Chloride 20 mEq ER Tab PO ONE (09:53)
--- NOTE | 2016-08-19 13:37 | CARD ---
APPROVED REPORT EKG Measurement Heart [id number] MA [id number] <Conclusion> Normal sinus rhythm Normal ECG
--- NOTE | 2016-08-19 16:35 | CP.PCM.PN ---
<Ashley Olivera - Last Filed: 08/19/16 18:02> Subjective - Date & Time of Evaluation Date of Evaluation: 08/19/16 Time of Evaluation: 16:35 - Subjective Subjective: Medicine Progress Note: Dr. Solano's Service Patient was seen and examined at bedside in no acute distress. Patient reports she has no complaints and feels well. Patient denies having chest pain, palpitations, abdominal pain, headaches, nausea, vomiting, diarrhea, and constipation. Objective - Vital Signs/Intake and Output Vital Signs (last 24 hours): Temp Pulse Resp BP Pulse Ox 97.3 F L 80 18 116/76 100 08/19/16 15:11 08/19/16 16:05 08/19/16 15:11 08/19/16 15:11 08/19/16 15:11 - Medications Medications: Current Medications Albuterol Sulfate (Albuterol 0.083% Inhal Ronda (2.5 Mg/3 Ml) Ud) 2.5 mg INH RQ6 PRN PRN Reason: Shortness of Breath Clopidogrel Bisulfate (Plavix) 75 mg PO DAILY [facility] Last Admin: 08/19/16 10:10 Dose: 75 mg Famotidine (Pepcid) 20 mg PO BID [facility] Last Admin: 08/19/16 10:10 Dose: 20 mg Heparin Sodium (Porcine) (Heparin) 5,000 units SC Q8 [facility] Last Admin: 08/19/16 14:21 Dose: 5,000 units Paroxetine HCl (Paxil) 60 mg PO DAILY [facility] Last Admin: 08/19/16 10:10 Dose: 60 mg Rosuvastatin Calcium (Crestor) 2.5 mg PO Q48H [facility] Last Admin: 08/17/16 22:22 Dose: 2.5 mg - Labs Labs: 08/19/16 06:14 08/19/16 06:14 PT 11.3 SECONDS (9.7-12.2) 08/17/16 13:28 INR 1.0 08/17/16 13:28 APTT 31 SECONDS (21-34) 08/17/16 13:28 - Constitutional Appears: No Acute Distress - Head Exam Head Exam: NORMAL INSPECTION, NORMOCEPHALIC - Eye Exam Eye Exam: EOMI, Normal appearance - ENT Exam ENT Exam: Mucous Membranes Moist - Respiratory Exam Respiratory Exam: Clear to Ausculation Bilateral, NORMAL BREATHING PATTERN. absent: Rhonchi, Wheezes - Cardiovascular Exam Cardiovascular Exam: REGULAR RHYTHM, +S1, +S2. absent: Murmur - GI/Abdominal Exam GI & Abdominal Exam: Soft, Normal Bowel Sounds. absent: Tenderness - Extremities Exam Extremities Exam: Normal Inspection. absent: Calf Tenderness, Pedal Edema, Tenderness - Neurological Exam Neurological Exam: Alert, Awake, Oriented x3 - Psychiatric Exam Psychiatric exam: Normal Affect, Normal Mood - Skin Skin Exam: Dry, Intact, Normal Color, Warm Assessment and Plan (1) TIA (transient ischemic attack) Assessment & Plan: Consult Neuro- Dr. Robles, help appreciated. CT Head- 08/17/16- Chronic microvascular ischemic changes. No evidence of acute intracranial hemorrhage (Please see full report). MRI Brain- there are multiple small focal areas of increased T2 signal scattered about the deep and subcortical white matter as well as both basal nuclei. Uncertain etiology. Mild generalized volume loss (Please see full report ). Carotid dopplers: mild stenosis in bother right and left internal carotids 2D Echo: f/u ROMIx3- negative EKG-NSR TSH: 1.49 RPR:nonreactive RA: negative MADDY- negative Started on Plavix 75mg PO Daily. Start Crestor 2.5 Q2d. Status: Acute (2) Asthma Assessment & Plan: Albuterol Q6h PRN Status: Acute (3) Depression Assessment & Plan: Paroxetine 60mg PO Daily Status: Acute (4) History of hypertension Assessment & Plan: Blood pressure is controlled. Will continue to monitor. Patient reported allergies to four medications, but is unsure of what their names are. Status: Acute (5) Prophylactic measure Assessment & Plan: Pepcid 20mg PO BID Heparin 5,000 units SC Q8 SCDs Heart healthy diet Activity as ordered Accuchecks Status: Acute <Jaydon Solano H - Last Filed: 08/19/16 19:17> Objective - Vital Signs/Intake and Output Vital Signs (last 24 hours): Temp Pulse Resp BP Pulse Ox 97.3 F L 80 18 116/76 100 08/19/16 15:11 08/19/16 16:05 08/19/16 15:11 08/19/16 15:11 08/19/16 15:11 - Medications Medications: Current Medications Albuterol Sulfate (Albuterol 0.083% Inhal Ronda (2.5 Mg/3 Ml) Ud) 2.5 mg INH RQ6 PRN PRN Reason: Shortness of Breath Clopidogrel Bisulfate (Plavix) 75 mg PO DAILY [facility] Last Admin: 08/19/16 10:10 Dose: 75 mg Famotidine (Pepcid) 20 mg PO BID [facility] Last Admin: 08/19/16 17:06 Dose: 20 mg Heparin Sodium (Porcine) (Heparin) 5,000 units SC Q8 [facility] Last Admin: 08/19/16 14:21 Dose: 5,000 units Paroxetine HCl (Paxil) 60 mg PO DAILY [facility] Last Admin: 08/19/16 10:10 Dose: 60 mg Rosuvastatin Calcium (Crestor) 2.5 mg PO Q48H [facility] Last Admin: 08/17/16 22:22 Dose: 2.5 mg - Labs Labs: 08/19/16 06:14 08/19/16 06:14 PT 11.3 SECONDS (9.7-12.2) 08/17/16 13:28 INR 1.0 08/17/16 13:28 APTT 31 SECONDS (21-34) 08/17/16 13:28 Attending/Attestation - Attestation I have personally seen and examined this patient.: Yes I have fully participated in the care of the patient.: Yes I have reviewed all pertinent clinical information, including history, physical exam and plan: Yes Notes (Text): 08/19/16 19:16 Medical Attending: Patient was seen and examined by me. Agree with the above note by the resident. The patient was able to stand and walk with us. She did not have weakness and did not report chest pain or palpitations or shortness of breath. We are still pending echo at this time. She had not yet had that done when we saw her in the morning. Jaydon Solano
[2016-08-19] MEDS: Rosuvastatin Calcium 2.5 mg Tab PO SCH (21:10)
[2016-08-20 00:04] VITALS: RESP 20
[2016-08-20 06:48] LABS: ALBUMIN 3.7 g/dL (3.5-5.0)
[2016-08-20 06:51] LABS: ALB/GLOB RATIO 1.1 (1.0-2.1); AST/SGOT 25 U/L (14-36); BLOOD UREA NITROGEN 13 mg/dL (7-17); GFR AFRICAN-AMERICAN > 60; GFR NON-AFRICAN AMERICAN > 60
[2016-08-20 06:52] LABS: ALT/SGPT 25 U/L (9-52); MAGNESIUM 2.1 mg/dL (1.6-2.3)
[2016-08-20 06:53] LABS: BASO # 0.1 K/uL (0.0-0.2); BASO % 1.1 % (0.0-2.0); EOS # 0.1 K/uL (0.0-0.7); EOS % 1.6 % (0.0-4.0); LYMPH % 38.6 % (20.0-40.0); MEAN CELL VOLUME 93.8 fL (81.0-99.0); MEAN CORPUSCULAR HEMOGLOBIN 31.5 pg (27.0-31.0); MEAN CORPUSCULAR HGB CONC 33.6 g/dL (33.0-37.0); MEAN PLATELET VOLUME 8.8 fL (7.2-11.7); MONO # 0.4 K/uL (0.0-0.8); MONO % 5.7 % (0.0-10.0); NEUT # 4.2 K/uL (1.8-7.0); NRBC % 0.2 % (0.0-2.0); RBC 4.45 Mil/uL (3.80-5.20); RED CELL DISTRIBUTION WIDTH 13.3 % (11.5-14.5); WHITE BLOOD COUNT 7.8 K/uL (4.8-10.8)
--- NOTE | 2016-08-20 11:36 | VASCLAB ---
PROCEDURE: HISTORY: code stroke COMPARISON: None available. TECHNIQUE: Grayscale and duplex Doppler evaluation of the cervical carotid and vertebral arteries were performed. The common carotid, carotid bifurcations and cervical Internal Carotid Artery (ICA) and proximal External Carotid Artery (ECA) were evaluated. The vertebral arteries were evaluated for gross patency and flow direction. Report prepared by Carlos Amado, BS, RVT FINDINGS: RIGHT CAROTID ARTERIES: 1. Common Carotid Artery: No significant focal plaque formation of the right common carotid artery. Maximum Peak Systolic velocity: 95 cm/sec: End-diastolic velocity 27 cm/sec. 2. Carotid Bifurcation: plaque formation. Maximum Peak Systolic velocity: 94 cm/sec: End-diastolic velocity 27 cm/sec. 3. Internal Carotid Artery: Plaque description: 3.1. Proximal Segment: Peak systolic velocity 68 cm/sec: End-diastolic velocity 27 cm/sec - % stenosis 0-15% 3.2. Middle Segment: Peak systolic velocity 56 cm/sec: End-diastolic velocity 18 cm/sec - % stenosis 0-15% 3.3. Distal Segment: Peak systolic velocity 100 cm/sec: End-diastolic velocity 25 cm/sec - % stenosis 0-15% 4. External Carotid Artery: No significant focal plaque formation. Peak systolic velocity 94 cm/sec 5. ICA/CCA Ratio: 1.0 LEFT CAROTID ARTERIES: 1. Common Carotid Artery: No significant focal plaque formation of the left common carotid artery. Maximum Peak Systolic velocity: 101 cm/sec: End-diastolic velocity 32 cm/sec. 2. Carotid Bifurcation: plaque formation. Maximum Peak Systolic velocity: 98 cm/sec: End-diastolic velocity 28 cm/sec. 3. Internal Carotid Artery: Plaque description: 3.1. Proximal Segment: Peak systolic velocity 103 cm/sec: End-diastolic velocity 32 cm/sec - % stenosis 0-15% 3.2. Middle Segment: Peak systolic velocity 93 cm/sec: End-diastolic velocity 31 cm/sec - % stenosis 0-15% 3.3. Distal Segment: Peak systolic velocity 50 cm/sec: End-diastolic velocity 22 cm/sec - % stenosis 0-15% 4. External Carotid Artery: No significant focal plaque formation. Peak systolic velocity 91 cm/sec 5. ICA/CCA Ratio: 1.0 VERTEBRAL ARTERIES: 1. Right Vertebral Artery: The right vertebral artery flow direction is antegrade. 2. Left Vertebral Artery: The left vertebral artery flow direction is antegrade. OTHER FINDINGS: 1. Right Brachial Blood pressure: 132 mmHg. 2. Left Brachial Blood pressure: 130 mmHg. IMPRESSION: RIGHT: Duplex scan does not suggest hemodynamically significant stenosis of the right extracranial carotid arteries. LEFT: Duplex scan does not suggest hemodynamically significant stenosis of the left extracranial carotid arteries.
--- NOTE | 2016-08-20 14:41 | CP.PCM.HP ---
History of Present Illness - History of Present Illness History of Present Illness: CC: HPI: Hospital Course: Patient is stable for discharge to home as per Dr. Solano. Patient should continue all home medications and continue new medications listed below. Home Medications: Albuterol Hydrochlorothiazide 25mg by mouth daily Ibuprofen 800 mg by mouth twice a day Meloxicam 15mg by mouth daily Paroxetine 1 tablet by mouth daily Trazadone by mouth daily. New Medication: Plavix 75mg, take 1 tablet every day. Patient should follow up with their primary card doctor, Dr. Oswald, within one week of discharge. These instructions have been discussed and understood with the patient. If symptoms reoccur, patient should return to the ED. Past Patient History - Infectious Disease Hx of Infectious Diseases: None - Past Medical History & Family History Past Medical History?: Yes - Past Social History Smoking Status: Never Smoked Chewing Tobacco Use: No Cigar Use: No Alcohol: None Drugs: Denies - CARDIAC Hx Hypertension: Yes - PULMONARY Hx Asthma: Yes - NEUROLOGICAL Hx Neurological Disorder: No Hx Migraine: No - HEENT Hx HEENT Problems: No - RENAL Hx Chronic Kidney Disease: No - ENDOCRINE/METABOLIC Hx Diabetes Mellitus Type 2: No (PRE DIABETIC ) - HEMATOLOGICAL/ONCOLOGICAL Hx Blood Disorders: No - INTEGUMENTARY Hx Dermatological Problems: No - MUSCULOSKELETAL/RHEUMATOLOGICAL Hx Arthritis: Yes Hx Rheumatoid Arthritis: Yes - GASTROINTESTINAL Hx Gastrointestinal Disorders: No - GENITOURINARY/GYNECOLOGICAL Hx Genitourinary Disorders: No - PSYCHIATRIC Hx Depression: Yes Hx Substance Use: No - SURGICAL HISTORY Hx Appendectomy: Yes Hx Cholecystectomy: Yes Hx Tonsillectomy: Yes - ANESTHESIA Hx Anesthesia: Yes Hx Anesthesia Reactions: No Meds Home Medications: Home Medication List Medication Instructions Recorded Confirmed Type Clopidogrel [Plavix] 75 mg PO DAILY #30 tab 08/20/16 Rx Allergies/Adverse Reactions: Allergies Allergy/AdvReac Type Severity Reaction Status Date / Time acetaminophen [From Percocet] Allergy Verified 08/17/16 12:47 aspirin Allergy Verified 08/17/16 12:47 ceftriaxone Allergy Verified 08/17/16 12:47 oxycodone [From Percocet] Allergy Verified 08/17/16 12:47 Penicillins Allergy Verified 08/17/16 12:47 Results - Vital Signs Recent Vital Signs: Last Vital Signs Temp 97.8 F 08/20/16 07:00 Pulse 71 08/20/16 07:00 Resp 20 08/20/16 07:00 BP 115/80 08/20/16 07:00 Pulse Ox 97 08/20/16 07:00 - Labs Result Diagrams: 08/20/16 06:12 08/20/16 06:12 Labs: Laboratory Results - last 24 hr 08/19/16 08/19/16 08/20/16 15:42 21:04 06:12 WBC 7.8 RBC 4.45 Hgb 14.0 Hct 41.7 MCV 93.8 MCH 31.5 H MCHC 33.6 RDW 13.3 Plt Count 273 MPV 8.8 Neut % (Auto) 53.0 Lymph % (Auto) 38.6 Brantley % (Auto) 5.7 Eos % (Auto) 1.6 Baso % (Auto) 1.1 Neut # 4.2 Lymph # 3.0 Brantley # 0.4 Eos # 0.1 Baso # 0.1 Sodium Potassium Chloride Carbon Dioxide Anion Gap BUN Creatinine Est GFR ( Amer) Est GFR (Non-Af Amer) POC Glucose (mg/dL) 108 98 Random Glucose Calcium Phosphorus Magnesium Total Bilirubin AST ALT Alkaline Phosphatase Total Protein Albumin Globulin Albumin/Globulin Ratio 08/20/16 08/20/16 08/20/16 06:12 06:21 11:18 WBC RBC Hgb Hct MCV MCH MCHC RDW Plt Count MPV Neut % (Auto) Lymph % (Auto) Brantley % (Auto) Eos % (Auto) Baso % (Auto) Neut # Lymph # Brantley # Eos # Baso # Sodium 136 Potassium 3.6 Chloride 102 Carbon Dioxide 27 Anion Gap 12 BUN 13 Creatinine 0.6 L Est GFR ( Amer) > 60 Est GFR (Non-Af Amer) > 60 POC Glucose (mg/dL) 88 83 Random Glucose 85 Calcium 9.0 Phosphorus 3.4 Magnesium 2.1 Total Bilirubin 0.7 AST 25 ALT 25 Alkaline Phosphatase 97 Total Protein 7.1 Albumin 3.7 Globulin 3.4 Albumin/Globulin Ratio 1.1 Assessment & Plan (1) TIA (transient ischemic attack) Status: Acute (2) Asthma Status: Acute (3) Depression Status: Acute (4) History of hypertension Status: Acute (5) Prophylactic measure Status: Acute
--- NOTE | 2016-08-20 14:55 | CP.PCM.DIS ---
<Ashley Olivera - Last Filed: 08/20/16 20:44> Provider - Provider Date of Admission: 08/17/16 14:14 Attending physician: Jaydon Solano DO Primary care physician: Dr. Oswald Consults: Neurology: Dr. Robles Time Spent in preparation of Discharge (in minutes): 45 Diagnosis - Discharge Diagnosis (1) TIA (transient ischemic attack) Status: Resolved Comment: See hospital summary for more details. (2) Asthma Status: Chronic Comment: See hospital summary for more details. (3) Depression Status: Chronic Comment: See hospital summary for more details. (4) History of hypertension Status: Chronic Comment: See hospital summary for more details. Hospital Course - Lab Results Lab Results: Most Recent Lab Values WBC 7.8 K/uL (4.8-10.8) 08/20/16 06:12 RBC 4.45 Mil/uL (3.80-5.20) 08/20/16 06:12 Hgb 14.0 g/dL (11.0-16.0) 08/20/16 06:12 Hct 41.7 % (34.0-47.0) 08/20/16 06:12 MCV 93.8 fL (81.0-99.0) 08/20/16 06:12 MCH 31.5 pg (27.0-31.0) H 08/20/16 06:12 MCHC 33.6 g/dL (33.0-37.0) 08/20/16 06:12 RDW 13.3 % (11.5-14.5) 08/20/16 06:12 Plt Count 273 K/uL (130-400) 08/20/16 06:12 MPV 8.8 fL (7.2-11.7) 08/20/16 06:12 Neut % (Auto) 53.0 % (50.0-75.0) 08/20/16 06:12 Lymph % (Auto) 38.6 % (20.0-40.0) 08/20/16 06:12 Hernando % (Auto) 5.7 % (0.0-10.0) 08/20/16 06:12 Eos % (Auto) 1.6 % (0.0-4.0) 08/20/16 06:12 Baso % (Auto) 1.1 % (0.0-2.0) 08/20/16 06:12 Neut # 4.2 K/uL (1.8-7.0) 08/20/16 06:12 Lymph # 3.0 K/uL (1.0-4.3) 08/20/16 06:12 Hernando # 0.4 K/uL (0.0-0.8) 08/20/16 06:12 Eos # 0.1 K/uL (0.0-0.7) 08/20/16 06:12 Baso # 0.1 K/uL (0.0-0.2) 08/20/16 06:12 ESR 29 mm/hr (0-20) H 08/17/16 16:30 PT 11.3 SECONDS (9.7-12.2) 08/17/16 13:28 INR 1.0 08/17/16 13:28 APTT 31 SECONDS (21-34) 08/17/16 13:28 Sodium 136 mmol/L (132-148) 08/20/16 06:12 Potassium 3.6 mmol/L (3.6-5.2) 08/20/16 06:12 Chloride 102 mmol/L (98-107) 08/20/16 06:12 Carbon Dioxide 27 mmol/L (22-30) 08/20/16 06:12 Anion Gap 12 (10-20) 08/20/16 06:12 BUN 13 mg/dL (7-17) 08/20/16 06:12 Creatinine 0.6 MG/DL (0.7-1.2) L 08/20/16 06:12 Est GFR ( Amer) > 60 08/20/16 06:12 Est GFR (Non-Af Amer) > 60 08/20/16 06:12 POC Glucose (mg/dL) 83 mg/dL (65-110) 08/20/16 11:18 Random Glucose 85 mg/dL (65-105) 08/20/16 06:12 Hemoglobin A1c 5.9 % (4.2-6.5) 08/17/16 14:38 Calcium 9.0 mg/dl (8.6-10.4) 08/20/16 06:12 Phosphorus 3.4 mg/dL (2.5-4.5) 08/20/16 06:12 Magnesium 2.1 mg/dL (1.6-2.3) 08/20/16 06:12 Total Bilirubin 0.7 mg/dL (0.2-1.3) 08/20/16 06:12 AST 25 U/L (14-36) 08/20/16 06:12 ALT 25 U/L (9-52) 08/20/16 06:12 Alkaline Phosphatase 97 U/L (38-126) 08/20/16 06:12 Total Creatine Kinase 54 U/L (30-135) 08/18/16 05:54 CK-MB (Mass) 0.25 ng/mL (0.0-3.38) 08/18/16 05:54 Troponin I < 0.0120 ng/mL (0.00-0.120) 08/17/16 13:28 Troponin I, Quant < 0.0120 ng/mL (0.00-0.120) 08/18/16 05:54 Total Protein 7.1 g/dL (6.3-8.3) 08/20/16 06:12 Albumin 3.7 g/dL (3.5-5.0) 08/20/16 06:12 Globulin 3.4 gm/dL (2.2-3.9) 08/20/16 06:12 Albumin/Globulin Ratio 1.1 (1.0-2.1) 08/20/16 06:12 Triglycerides 103 mg/dL (0-149) 08/17/16 13:28 Cholesterol 163 mg/dL (0-199) 08/17/16 13:28 LDL Cholesterol Direct 111 mg/dL (0-129) 08/17/16 13:28 HDL Cholesterol 32 mg/dL (30-70) 08/17/16 13:28 Vitamin B12 731 pg/mL (239-931) 08/17/16 16:30 Folate 7.7 ng/mL 08/17/16 16:30 Homocysteine 12.6 umol/L (4.7-12.6) 08/17/16 16:30 Free T4 1.02 ng/dL (0.78-2.19) 08/17/16 16:30 TSH 3rd Generation 1.49 mIU/L (0.46-4.68) 08/18/16 07:56 Urine Color Straw (YELLOW) 08/17/16 13:32 Urine Clarity Hazy (Clear) 08/17/16 13:32 Urine pH 6.0 (5.0-8.0) 08/17/16 13:32 Ur Specific [place] 1.002 (1.003-1.030) L 08/17/16 13:32 Urine Protein Negative mg/dL (NEGATIVE) 08/17/16 13:32 Urine Glucose (UA) Normal mg/dL (Normal) 08/17/16 13:32 Urine Ketones Negative mg/dL (NEGATIVE) 08/17/16 13:32 Urine Blood Negative (NEGATIVE) 08/17/16 13:32 Urine Nitrate Negative (NEGATIVE) 08/17/16 13:32 Urine Bilirubin Negative (NEGATIVE) 08/17/16 13:32 Urine Urobilinogen Normal mg/dL (0.2-1.0) 08/17/16 13:32 Ur Leukocyte Esterase 2+ Ashlee/uL (Negative) H 08/17/16 13:32 Urine WBC (Auto) 13 /hpf (0-5) H 08/17/16 13:32 Urine RBC (Auto) 1 /hpf (0-3) 08/17/16 13:32 Ur Squamous Epith Cells 5 /hpf (0-5) 08/17/16 13:32 Urine Bacteria Few (<OCC) H 08/17/16 13:32 Rheum Arthritis Panel Negative (NEGATIVE) 08/17/16 16:30 MADDY 6 Profile Negative (NEGATIVE) 08/17/16 16:30 RPR Nonreactive (NONREACTIVE) 08/17/16 16:30 Blood Type A POSITIVE 08/17/16 13:32 Blood Type Confirm A POSITIVE 08/17/16 13:32 Antibody Screen Negative 08/17/16 13:32 - Hospital Course Hospital Course: CC: "left arm numbness" HPI:Patient is a 61 year old female with PMHx of hypertension, heart murmur, depression and asthma, presenting to the ED complaining of a headache that started last night.She said she was able to sleep, but this morning the headache got worse. She states that this morning, around 10am, her left arm started feeling numb and heavy, like it was sleeping. She says both symptoms resolved by the time she came to the ED. She currently has no acute complaints. She denies chest pain, palpitations, dyspnea, blurry vision, difficulty speaking / understanding, gait abnormalities. Hospital Course: Patient received an ECG that showed sinus rhythm with no ST/T wave changes with a rate of 86. Patient had a neurology consult with Dr. Robles where a head CT without contrast was done on 08/17/16 and showed chronic microvascular ischemic changes; no evidence of acute intracranial hemorrhage. MRI of the brain showed multiple small focal areas of increased T2 signal scattered around the deep and subcortical white matter as well as both basal nuclei; Uncertain etiology; Mild generalized volume loss. Patient was started on started on Plavix and Crestor. 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 Echo was ordered and the unofficial reports showed an ejection fraction of 75%. Patient reported to be feeling much better with no headaches or other related symptoms. Patient with noted clinical improvement and patient deemed medically stable for discharge. This is a brief summary of events. For a complete course, refer to the medical record. Patient is stable for discharge to home as per Dr. Solano. Patient should continue all home medications and continue new medications listed below. Home Medications: Albuterol Hydrochlorothiazide 25mg by mouth daily Ibuprofen 800 mg by mouth twice a day Meloxicam 15mg by mouth daily Paroxetine 1 tablet by mouth daily Trazadone by mouth daily. New Medication: Plavix 75mg, take 1 tablet every day. Simvastatin 10mg PO HS daily Patient should follow up with their primary card doctor, Dr. Oswald, within one week of discharge. These instructions have been discussed and understood with the patient. If symptoms reoccur, patient should return to the ED. Discharge Exam - Head Exam Head Exam: NORMAL INSPECTION, NORMOCEPHALIC - Eye Exam Eye Exam: EOMI, Normal appearance - ENT Exam ENT Exam: Mucous Membranes Moist - Neck Exam Neck exam: Full Rom, Normal Inspection - Respiratory Exam Respiratory Exam: Clear to PA & Lateral, NORMAL BREATHING PATTERN, UNREMARKABLE. absent: Rhonchi, Wheezes - Cardiovascular Exam Cardiovascular Exam: REGULAR RHYTHM, +S1, +S2. absent: Gallop, Rubs - GI/Abdominal Exam GI & Abdominal Exam: Normal Bowel Sounds, Soft, Unremarkable. absent: Tenderness - Extremities Exam Extremities exam: normal inspection - Neurological Exam Neurological exam: Alert, Oriented x3 - Psychiatric Exam Psychiatric exam: Normal Affect, Normal Mood - Skin Skin Exam: Dry, Intact, Normal Color, Warm Discharge Plan - Discharge Medications Prescriptions: Clopidogrel [Plavix] 75 mg PO DAILY #30 tab Simvastatin 10 mg PO HS #30 tablet - Follow Up Plan Condition: STABLE Disposition: HOME/ ROUTINE Instructions: Simvastatin (By mouth), Clopidogrel (By mouth), Transient Ischemic Attack (DC), Heart Healthy Diet (DC), Hypertension (DC) Additional Instructions: Patient is stable for discharge to home as per Dr. Solano. Patient should continue all home medications and continue new medications listed below. Home Medications: Albuterol Hydrochlorothiazide 25mg by mouth daily Ibuprofen 800 mg by mouth twice a day Meloxicam 15mg by mouth daily Paroxetine 1 tablet by mouth daily Trazadone by mouth daily. New Medication: Plavix 75mg, take 1 tablet every day. Simvastatin 10mg by mouth at night. Patient should follow up with their primary card doctor, Dr. Oswald, within one week of discharge. These instructions have been discussed and understood with the patient. If symptoms reoccur, patient should return to the ED. Referrals: Velasquez Robles MD [Staff Provider] - <Jaydon Solano - Last Filed: 08/21/16 08:20> Provider - Provider Date of Admission: 08/17/16 14:14 Attending physician: Jaydon Solano DO Hospital Course - Lab Results Lab Results: Most Recent Lab Values WBC 7.8 K/uL (4.8-10.8) 08/20/16 06:12 RBC 4.45 Mil/uL (3.80-5.20) 08/20/16 06:12 Hgb 14.0 g/dL (11.0-16.0) 08/20/16 06:12 Hct 41.7 % (34.0-47.0) 08/20/16 06:12 MCV 93.8 fL (81.0-99.0) 08/20/16 06:12 MCH 31.5 pg (27.0-31.0) H 08/20/16 06:12 MCHC 33.6 g/dL (33.0-37.0) 08/20/16 06:12 RDW 13.3 % (11.5-14.5) 08/20/16 06:12 Plt Count 273 K/uL (130-400) 08/20/16 06:12 MPV 8.8 fL (7.2-11.7) 08/20/16 06:12 Neut % (Auto) 53.0 % (50.0-75.0) 08/20/16 06:12 Lymph % (Auto) 38.6 % (20.0-40.0) 08/20/16 06:12 Hernando % (Auto) 5.7 % (0.0-10.0) 08/20/16 06:12 Eos % (Auto) 1.6 % (0.0-4.0) 08/20/16 06:12 Baso % (Auto) 1.1 % (0.0-2.0) 08/20/16 06:12 Neut # 4.2 K/uL (1.8-7.0) 08/20/16 06:12 Lymph # 3.0 K/uL (1.0-4.3) 08/20/16 06:12 Hernando # 0.4 K/uL (0.0-0.8) 08/20/16 06:12 Eos # 0.1 K/uL (0.0-0.7) 08/20/16 06:12 Baso # 0.1 K/uL (0.0-0.2) 08/20/16 06:12 ESR 29 mm/hr (0-20) H 08/17/16 16:30 PT 11.3 SECONDS (9.7-12.2) 08/17/16 13:28 INR 1.0 08/17/16 13:28 APTT 31 SECONDS (21-34) 08/17/16 13:28 Sodium 136 mmol/L (132-148) 08/20/16 06:12 Potassium 3.6 mmol/L (3.6-5.2) 08/20/16 06:12 Chloride 102 mmol/L (98-107) 08/20/16 06:12 Carbon Dioxide 27 mmol/L (22-30) 08/20/16 06:12 Anion Gap 12 (10-20) 08/20/16 06:12 BUN 13 mg/dL (7-17) 08/20/16 06:12 Creatinine 0.6 MG/DL (0.7-1.2) L 08/20/16 06:12 Est GFR ( Amer) > 60 08/20/16 06:12 Est GFR (Non-Af Amer) > 60 08/20/16 06:12 POC Glucose (mg/dL) 83 mg/dL (65-110) 08/20/16 11:18 Random Glucose 85 mg/dL (65-105) 08/20/16 06:12 Hemoglobin A1c 5.9 % (4.2-6.5) 08/17/16 14:38 Calcium 9.0 mg/dl (8.6-10.4) 08/20/16 06:12 Phosphorus 3.4 mg/dL (2.5-4.5) 08/20/16 06:12 Magnesium 2.1 mg/dL (1.6-2.3) 08/20/16 06:12 Total Bilirubin 0.7 mg/dL (0.2-1.3) 08/20/16 06:12 AST 25 U/L (14-36) 08/20/16 06:12 ALT 25 U/L (9-52) 08/20/16 06:12 Alkaline Phosphatase 97 U/L (38-126) 08/20/16 06:12 Total Creatine Kinase 54 U/L (30-135) 08/18/16 05:54 CK-MB (Mass) 0.25 ng/mL (0.0-3.38) 08/18/16 05:54 Troponin I < 0.0120 ng/mL (0.00-0.120) 08/17/16 13:28 Troponin I, Quant < 0.0120 ng/mL (0.00-0.120) 08/18/16 05:54 Total Protein 7.1 g/dL (6.3-8.3) 08/20/16 06:12 Albumin 3.7 g/dL (3.5-5.0) 08/20/16 06:12 Globulin 3.4 gm/dL (2.2-3.9) 08/20/16 06:12 Albumin/Globulin Ratio 1.1 (1.0-2.1) 08/20/16 06:12 Triglycerides 103 mg/dL (0-149) 08/17/16 13:28 Cholesterol 163 mg/dL (0-199) 08/17/16 13:28 LDL Cholesterol Direct 111 mg/dL (0-129) 08/17/16 13:28 HDL Cholesterol 32 mg/dL (30-70) 08/17/16 13:28 Vitamin B12 731 pg/mL (239-931) 08/17/16 16:30 Folate 7.7 ng/mL 08/17/16 16:30 Homocysteine 12.6 umol/L (4.7-12.6) 08/17/16 16:30 Free T4 1.02 ng/dL (0.78-2.19) 08/17/16 16:30 TSH 3rd Generation 1.49 mIU/L (0.46-4.68) 08/18/16 07:56 Urine Color Straw (YELLOW) 08/17/16 13:32 Urine Clarity Hazy (Clear) 08/17/16 13:32 Urine pH 6.0 (5.0-8.0) 08/17/16 13:32 Ur Specific [place] 1.002 (1.003-1.030) L 08/17/16 13:32 Urine Protein Negative mg/dL (NEGATIVE) 08/17/16 13:32 Urine Glucose (UA) Normal mg/dL (Normal) 08/17/16 13:32 Urine Ketones Negative mg/dL (NEGATIVE) 08/17/16 13:32 Urine Blood Negative (NEGATIVE) 08/17/16 13:32 Urine Nitrate Negative (NEGATIVE) 08/17/16 13:32 Urine Bilirubin Negative (NEGATIVE) 08/17/16 13:32 Urine Urobilinogen Normal mg/dL (0.2-1.0) 08/17/16 13:32 Ur Leukocyte Esterase 2+ Ashlee/uL (Negative) H 08/17/16 13:32 Urine WBC (Auto) 13 /hpf (0-5) H 08/17/16 13:32 Urine RBC (Auto) 1 /hpf (0-3) 08/17/16 13:32 Ur Squamous Epith Cells 5 /hpf (0-5) 08/17/16 13:32 Urine Bacteria Few (<OCC) H 08/17/16 13:32 Rheum Arthritis Panel Negative (NEGATIVE) 08/17/16 16:30 MADDY 6 Profile Negative (NEGATIVE) 08/17/16 16:30 RPR Nonreactive (NONREACTIVE) 08/17/16 16:30 Blood Type A POSITIVE 08/17/16 13:32 Blood Type Confirm A POSITIVE 08/17/16 13:32 Antibody Screen Negative 08/17/16 13:32 Attending/Attestation - Attestation I have personally seen and examined this patient.: Yes I have fully participated in the care of the patient.: Yes I have reviewed all pertinent clinical information, including history, physical exam and plan: Yes Notes (Text): Medical attending: Patient was seen and examined by me, agrees the above note by medical nurse. The patient was doing much better today, like yesterday we had her get up and walk with us in she was able to do so without any assistance. He walked around the nurse's station and to the telemetry. And per review of the telemetry she was in normal sinus rhythm, with a stable heart rate she didn't have any recorded events on the licensed occupational therapist overnight. When the patient was walking with a she denied having any chest pain shortness of breath palpitations dizziness or headaches The patient had MRI, CAT scan of the brain, as well as echo and carotid studies. The patient will be discharged home, she understands that she needs follow-up with her primary medical doctor. Thank you very much, Jaydon Solano
[2016-08-20 16:11] VITALS: BP 123/89; PULSE 87; TEMP 98; O2SAT 99
--- NOTE | 2016-08-21 11:07 | CARD ---
APPROVED REPORT EKG Measurement Heart [id number] [place] [id number] <Conclusion> Normal sinus rhythm Normal ECG
--- NOTE | 2016-08-21 11:59 | CARD ---
APPROVED REPORT EKG Measurement Heart [id number] [place] 158P57 [id number] <Conclusion> Normal sinus rhythm Normal ECG
--- NOTE | 2016-08-21 12:01 | CARD ---
APPROVED REPORT EKG Measurement Heart [id number] [place] 158P33 [id number] <Conclusion> Normal sinus rhythm Low voltage QRS Borderline ECG
--- NOTE | 2016-08-22 10:37 | CARD ---
APPROVED REPORT EXAM: Two-dimensional and M-mode echocardiogram with Doppler and color Doppler. Other Information Quality : GoodRhythm : NSR INDICATION Hypertension/HCVD Murmur RISK FACTORS Hypertension M-Mode DIMENSIONS RVDd2.02 (2.1-3.2cm)Left Atrium (MM)2.93 (2.5-4.0cm) IVSd0.85 (0.7-1.1cm)Aortic Root2.77 (2.2-3.7cm) LVDd4.69 (4.0-5.6cm)Aortic Cusp Exc.2.02 (1.5-2.0cm) PWd0.85 (0.7-1.1cm)FS (%) 44 % LVDs2.64 (2.0-3.8cm)LVEF (%)75 (>50%) Mitral Valve MV E Gznueola83.3cm/sMV A Cerxqcud46.0cm/sE/A ratio0.9 TDI E/Lateral E'0.0E/Medial E'0.0 Tricuspid Valve TR Peak Dbtwqkof149sb/sTR Peak Gr.93ybQqDORT19cbCt LEFT VENTRICLE The left ventricle is normal size. There is normal left ventricular wall thickness. The left ventricular function is normal. The left ventricular ejection fraction is within the normal range. No regional wall motion abnormalities noted. Transmitral Doppler flow pattern is Grade I-abnormal relaxation pattern. No left ventricle thrombus noted on this study. There is no ventricular septal defect visualized. There is no left ventricular aneurysm. There is no mass noted in the left ventricle. RIGHT VENTRICLE The right ventricle is normal size. There is normal right ventricular wall thickness. The right ventricular systolic function is normal. ATRIA The left atrium size is normal. The right atrium size is normal. The interatrial septum is intact with no evidence for an atrial septal defect. AORTIC VALVE The aortic valve is normal in structure and function. No aortic regurgitation is present. There is no aortic valvular stenosis. There is no aortic valvular vegetation. MITRAL VALVE The mitral valve is normal in structure and function. There is no evidence of mitral valve prolapse. There is no mitral valve stenosis. There is no mitral valve regurgitation noted. TRICUSPID VALVE The tricuspid valve is normal in structure. There is mild tricuspid regurgitation. There is no tricuspid valve prolapse or vegetation. There is no tricuspid valve stenosis. PULMONIC VALVE The pulmonary valve is normal in structure and function. There is no pulmonic valvular regurgitation. There is no pulmonic valvular stenosis. GREAT VESSELS The aortic root is normal in size. The ascending aorta is normal in size. The pulmonary artery is normal. The IVC is normal in size and collapses >50% with inspiration. PERICARDIAL EFFUSION The pericardium appears normal. There is no pleural effusion. <Conclusion> The left ventricular ejection fraction is within the normal range. Transmitral Doppler flow pattern is Grade I-abnormal relaxation pattern. There is mild tricuspid regurgitation.
== END 2016-08-20 17:36 | disposition home or self-care (01) | DRG 69 ==
LOC: C.ER 12:34 → C.9E 14:14 → C.6T 15:41
PROVIDERS: ADMIT Hospitalist; ATTEND Hospitalist
DX: G45.9 Transient cerebral ischemic attack, unspecified (principal); I10 Essential (primary) hypertension; N39.0 Urinary tract infection, site not specified; E11.9 Type 2 diabetes mellitus without complications; F32.9 Major depressive disorder, single episode, unspecified; J45.909 Unspecified asthma, uncomplicated; M06.9 Rheumatoid arthritis, unspecified; Z90.49 Acquired absence of other specified parts of digestive tract

== ENCOUNTER 2017-06-20 21:56 | Observation (INO) | payer MEDICARE, MEDICAID ==
--- NOTE | 2017-06-20 22:27 | C.PDOC ---
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 Denies fever or other complaints. Time Seen by Provider: 06/20/17 22:11 Chief Complaint (Nursing): Chest Pain History Per: Patient History/Exam Limitations: no limitations Onset/Duration Of Symptoms: Hrs Current Symptoms Are (Timing): Still Present Associated Symptoms: denies: Nausea, Dyspnea, Diaphoresis, Syncope Modifying Factors: None Exacerbating Factors: None Alleviating Factors: None Recent travel outside of the [place]: No Past Medical History Reviewed: Historical Data, Nursing Documentation, Vital Signs Vital Signs: Last Vital Signs Temp 98.5 F 06/20/17 22:04 Pulse 84 06/20/17 22:04 Resp 14 06/20/17 22:04 BP 135/91 H 06/20/17 22:04 Pulse Ox 97 06/20/17 22:27 - Medical History PMH: Anxiety, Arthritis, Asthma, Depression, HTN, Rheumatoid Arthritis Surgical History: Appendectomy, Cholecystectomy, Tonsillectomy - Sensor[employer] Procedures TETANUS TOXOID ADMINIST (08/10/14) Family History: States: Unknown Family Hx - Social History Hx Tobacco Use: No Hx Alcohol Use: No Hx Substance Use: No - Immunization History Hx Tetanus Toxoid Vaccination: No Hx Influenza Vaccination: No Hx Pneumococcal Vaccination: Yes Review Of Systems Except As Marked, All Systems Reviewed And Found Negative. Constitutional: Negative for: Fever Cardiovascular: Positive for: Chest Pain Respiratory: Negative for: Cough, Shortness of Breath Gastrointestinal: Negative for: Nausea, Vomiting Psych: Positive for: Anxiety, Depression Physical Exam - Physical Exam Appears: Non-toxic Skin: Normal Color, Warm, Dry Head: Atraumatic, Normacephalic Eye(s): bilateral: Normal Inspection Oral Mucosa: Moist Chest: Symmetrical, No Tenderness Cardiovascular: Rhythm Regular Respiratory: Normal Breath Sounds, No Rales, No Rhonchi, No Wheezing Gastrointestinal/Abdominal: Soft, No Tenderness Neurological/Psych: Oriented x3, Normal Speech ED Course And Treatment O2 Sat by Pulse Oximetry: 97 (Room air) Pulse Ox Interpretation: Normal Medical Decision Making Medical Decision Making: Plan: * EKG * Blood work * CXR * Urinalysis Disposition - Disposition Forms: [employer] (Yoruba) - Scribe Statement The provider has reviewed the documentation as recorded by the Scribgabo Alvarez All medical record entries made by the Dgibgabo were at my direction and personally dictated by me. I have reviewed the chart and agree that the record accurately reflects my personal performance of the history, physical exam, medical decision making, and the department course for this patient. I have also personally directed, reviewed, and agree with the discharge instructions and disposition.
[2017-06-20 22:41] LABS: BASO % 0.4 % (0.0-2.0); EOS # 0.2 K/uL (0.0-0.7); EOS % 2.9 % (0.0-4.0); HEMOGLOBIN 13.2 g/dL (11.0-16.0); LYMPH # 3.1 K/uL (1.0-4.3); LYMPH % 42.9 % (20.0-40.0); MEAN CELL VOLUME 94.8 fL (81.0-99.0); MEAN CORPUSCULAR HEMOGLOBIN 32.9 pg (27.0-31.0); MEAN CORPUSCULAR HGB CONC 34.7 g/dL (33.0-37.0); MEAN PLATELET VOLUME 8.2 fL (7.2-11.7); MONO # 0.4 K/uL (0.0-0.8); MONO % 5.8 % (0.0-10.0); NEUT # 3.5 K/uL (1.8-7.0); NRBC % 0.1 % (0.0-2.0); RBC 4.02 Mil/uL (3.80-5.20); RED CELL DISTRIBUTION WIDTH 13.3 % (11.5-14.5); WHITE BLOOD COUNT 7.3 K/uL (4.8-10.8)
[2017-06-20 22:52] LABS: ALB/GLOB RATIO 1.1 (1.0-2.1); ALBUMIN 4.1 g/dL (3.5-5.0); CALCIUM 9.4 mg/dl (8.6-10.4); GFR AFRICAN-AMERICAN > 60; GFR NON-AFRICAN AMERICAN > 60
[2017-06-20 22:56] LABS: PROTHROMBIN TIME 11.1 SECONDS (9.7-12.2)
[2017-06-20 22:59] LABS: ALT/SGPT 29 U/L (9-52); AST/SGOT 41 U/L (14-36); BLOOD UREA NITROGEN 18 mg/dL (7-17)
[2017-06-20 23:15] LABS: SQUAMOUS EPITHIAL 11 /hpf (0-5); URINE BACTERIA FEW (<OCC); URINE BILIRUBIN NEGATIVE (NEGATIVE); URINE BLOOD NEGATIVE (NEGATIVE); URINE CLARITY Hazy (Clear); URINE COLOR Yellow (YELLOW); URINE GLUCOSE (UA) NORMAL (Normal); URINE LEUKOCYTE ESTERASE 1+ Leu/uL (Negative); URINE PROTEIN NEGATIVE (NEGATIVE); URINE UROBILINOGEN NORMAL mg/dL (0.2-1.0)
--- NOTE | 2017-06-21 01:12 | CP.PCM.HP ---
Addendum entered and electronically signed by Juliane Galaviz DO 06/21/17 02:38: UTI treated with tmp/smx by Dr. 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 Patient states she hasn't had this before. Patient states she recently had stress test, echocardiogram at another hospital. Patient was asked to provide the records tomorrow if she could. Patient states she also had a workeup for supraclavicular lymph nodes and had a CT scan as well with no notable masses. PMH: Anxiety, Arthritis, Asthma, Depression, HTN, Rheumatoid Arthritis PSH: Appendectomy, cholecystectomy, tonsillectomy Social History: denies smoking, denies drinking ETOH, denies illicit drugs. Allergies: acetaminophen, aspirin, ceftriaxone, oxycodone, penicillin Present on Admission - Present on Admission Any Indicators Present on Admission: No History of DVT/PE: No History of Uncontrolled Diabetes: No Urinary Catheter: No Decubitus Ulcer Present: No Past Patient History - Infectious Disease Hx of Infectious Diseases: None - Past Medical History & Family History Past Medical History?: Yes - Past Social History Smoking Status: Never Smoked - CARDIAC Hx Hypertension: Yes - PULMONARY Hx Asthma: Yes - NEUROLOGICAL Hx Migraine: No - HEENT Hx HEENT Problems: No - RENAL Hx Chronic Kidney Disease: No - ENDOCRINE/METABOLIC Hx Diabetes Mellitus Type 2: No (PRE DIABETIC ) - HEMATOLOGICAL/ONCOLOGICAL Hx Blood Disorders: No - INTEGUMENTARY Hx Dermatological Problems: No - MUSCULOSKELETAL/RHEUMATOLOGICAL Hx Arthritis: Yes Hx Rheumatoid Arthritis: Yes - GASTROINTESTINAL Hx Gastrointestinal Disorders: No - GENITOURINARY/GYNECOLOGICAL Hx Genitourinary Disorders: No - PSYCHIATRIC Hx Anxiety: Yes Hx Depression: Yes Hx Substance Use: No - SURGICAL HISTORY Hx Appendectomy: Yes Hx Cholecystectomy: Yes Hx Tonsillectomy: Yes - ANESTHESIA Hx Anesthesia: Yes Hx Anesthesia Reactions: No Meds Allergies/Adverse Reactions: Allergies Allergy/AdvReac Type Severity Reaction Status Date / Time acetaminophen [From Percocet] Allergy Verified 06/20/17 22:07 aspirin Allergy Verified 06/20/17 22:07 ceftriaxone Allergy Verified 06/20/17 22:07 oxycodone [From Percocet] Allergy Verified 06/20/17 22:07 Penicillins Allergy Verified 06/20/17 22:07 Physical Exam - Constitutional Appears: No Acute Distress - Head Exam Head Exam: NORMAL INSPECTION, NORMOCEPHALIC - Eye Exam Eye Exam: EOMI, Normal appearance - ENT Exam ENT Exam: Mucous Membranes Moist - Neck Exam Neck exam: Positive for: Full Rom, Normal Inspection - Respiratory Exam Respiratory Exam: Clear to Auscultation Bilateral, NORMAL BREATHING PATTERN - Cardiovascular Exam Cardiovascular Exam: REGULAR RHYTHM, +S1, +S2. absent: Bradycardia, Tachycardia - GI/Abdominal Exam GI & Abdominal Exam: Normal Bowel Sounds, Soft. absent: Tenderness - Extremities Exam Extremities exam: Positive for: full ROM, normal inspection. Negative for: pedal edema - Neurological Exam Neurological exam: Alert, CN II-XII Intact, Oriented x3 - Psychiatric Exam Psychiatric exam: Normal Affect, Normal Mood - Skin Skin Exam: Dry, Intact, Normal Color, Warm Results - Vital Signs Recent Vital Signs: Last Vital Signs Temp 97.9 F 06/21/17 00:24 Pulse 67 06/21/17 00:24 Resp 22 06/21/17 00:24 BP 109/72 06/21/17 00:24 Pulse Ox 99 06/21/17 00:24 - Labs Result Diagrams: 06/20/17 22:36 06/20/17 22:36 Labs: Laboratory Results - last 24 hr 06/20/17 06/20/17 06/20/17 22:36 22:36 22:36 WBC 7.3 RBC 4.02 Hgb 13.2 Hct 38.1 MCV 94.8 MCH 32.9 H MCHC 34.7 RDW 13.3 Plt Count 270 MPV 8.2 Neut % (Auto) 48.0 L Lymph % (Auto) 42.9 H [place] % (Auto) 5.8 Eos % (Auto) 2.9 Baso % (Auto) 0.4 Neut # (Auto) 3.5 Lymph # (Auto) 3.1 [place] # (Auto) 0.4 Eos # (Auto) 0.2 Baso # (Auto) 0.0 PT 11.1 INR 1.0 APTT 30 Sodium 143 Potassium 5.0 Chloride 105 Carbon Dioxide 26 Anion Gap 17 BUN 18 H Creatinine 0.8 Est GFR ( Amer) > 60 Est GFR (Non-Af Amer) > 60 Random Glucose 103 Calcium 9.4 Total Bilirubin 1.0 AST 41 H ALT 29 Alkaline Phosphatase 80 Troponin I < 0.0120 Total Protein 7.9 Albumin 4.1 Globulin 3.9 Albumin/Globulin Ratio 1.1 Urine Color Urine Clarity Urine pH Ur Specific [place] Urine Protein Urine Glucose (UA) Urine Ketones Urine Blood Urine Nitrate Urine Bilirubin Urine Urobilinogen Ur Leukocyte Esterase Urine WBC (Auto) Urine RBC (Auto) Ur Squamous Epith Cells Urine Bacteria 06/20/17 22:54 WBC RBC Hgb Hct MCV MCH MCHC RDW Plt Count MPV Neut % (Auto) Lymph % (Auto) [place] % (Auto) Eos % (Auto) Baso % (Auto) Neut # (Auto) Lymph # (Auto) [place] # (Auto) Eos # (Auto) Baso # (Auto) PT INR APTT Sodium Potassium Chloride Carbon Dioxide Anion Gap BUN Creatinine Est GFR ( Amer) Est GFR (Non-Af Amer) Random Glucose Calcium Total Bilirubin AST ALT Alkaline Phosphatase Troponin I Total Protein Albumin Globulin Albumin/Globulin Ratio Urine Color Yellow Urine Clarity Hazy Urine pH 5.0 Ur Specific [place] 1.020 Urine Protein Negative Urine Glucose (UA) Normal Urine Ketones Negative Urine Blood Negative Urine Nitrate Negative Urine Bilirubin Negative Urine Urobilinogen Normal Ur Leukocyte Esterase 1+ H Urine WBC (Auto) 12 H Urine RBC (Auto) 1 Ur Squamous Epith Cells 11 H Urine Bacteria Few H Assessment & Plan - Assessment and Plan (Free Text) Assessment: ACS r/o Troponin negative x 1 f/u MICHAELA x 2 ASA 81 mg POQD Statin continue home medications patient is on plavix - Date & Time Date: 06/21/17 Time: 01:13 <Frederick Diehl - Last Filed: 06/21/17 06:34> Results - Vital Signs Recent Vital Signs: Last Vital Signs Temp 97.8 F 06/21/17 04:56 Pulse 74 06/21/17 04:56 Resp 20 06/21/17 04:56 BP 107/66 06/21/17 04:56 Pulse Ox 96 06/21/17 04:56 - Labs Result Diagrams: 06/20/17 22:36 06/20/17 22:36 Labs: Laboratory Results - last 24 hr 06/20/17 06/20/17 06/20/17 22:36 22:36 22:36 WBC 7.3 RBC 4.02 Hgb 13.2 Hct 38.1 MCV 94.8 MCH 32.9 H MCHC 34.7 RDW 13.3 Plt Count 270 MPV 8.2 Neut % (Auto) 48.0 L Lymph % (Auto) 42.9 H [place] % (Auto) 5.8 Eos % (Auto) 2.9 Baso % (Auto) 0.4 Neut # (Auto) 3.5 Lymph # (Auto) 3.1 [place] # (Auto) 0.4 Eos # (Auto) 0.2 Baso # (Auto) 0.0 PT 11.1 INR 1.0 APTT 30 Sodium 143 Potassium 5.0 Chloride 105 Carbon Dioxide 26 Anion Gap 17 BUN 18 H Creatinine 0.8 Est GFR ( Amer) > 60 Est GFR (Non-Af Amer) > 60 Random Glucose 103 Calcium 9.4 Total Bilirubin 1.0 AST 41 H ALT 29 Alkaline Phosphatase 80 Total Creatine Kinase CK-MB (Mass) Troponin I < 0.0120 Total Protein 7.9 Albumin 4.1 Globulin 3.9 Albumin/Globulin Ratio 1.1 Urine Color Urine Clarity Urine pH Ur Specific [place] Urine Protein Urine Glucose (UA) Urine Ketones Urine Blood Urine Nitrate Urine Bilirubin Urine Urobilinogen Ur Leukocyte Esterase Urine WBC (Auto) Urine RBC (Auto) Ur Squamous Epith Cells Urine Bacteria 06/20/17 06/21/17 22:54 04:02 WBC RBC Hgb Hct MCV MCH MCHC RDW Plt Count MPV Neut % (Auto) Lymph % (Auto) [place] % (Auto) Eos % (Auto) Baso % (Auto) Neut # (Auto) Lymph # (Auto) [place] # (Auto) Eos # (Auto) Baso # (Auto) PT INR APTT Sodium Potassium Chloride Carbon Dioxide Anion Gap BUN Creatinine Est GFR ( Amer) Est GFR (Non-Af Amer) Random Glucose Calcium Total Bilirubin AST ALT Alkaline Phosphatase Total Creatine Kinase 189 H CK-MB (Mass) < 0.22 Troponin I < 0.0120 Total Protein Albumin Globulin Albumin/Globulin Ratio Urine Color Yellow Urine Clarity Hazy Urine pH 5.0 Ur Specific [place] 1.020 Urine Protein Negative Urine Glucose (UA) Normal Urine Ketones Negative Urine Blood Negative Urine Nitrate Negative Urine Bilirubin Negative Urine Urobilinogen Normal Ur Leukocyte Esterase 1+ H Urine WBC (Auto) 12 H Urine RBC (Auto) 1 Ur Squamous Epith Cells 11 H Urine Bacteria Few H Assessment & Plan - Date & Time Date: 06/21/17 (I have seen and examined the patient. I agree with the findings and plan of care as documented by Dr. Galaviz. Patient with chest pain. History of hypertension. Allergic to aspirin. Statin and Plavix. ROMIx3 with EKG. Continue home meds. Monitor for acute changes.) Time: 06:33 Attending/Attestation - Attestation I have personally seen and examined this patient.: Yes I have fully participated in the care of the patient.: Yes I have reviewed all pertinent clinical information: Yes
[2017-06-21] MEDS ORDERED: Tmp-Smz 800 mg-160 mg DS Tab PO SCH ×2 (02:45→10:00)
[2017-06-21 04:31] LABS: CK-MB < 0.22 ng/mL (0.0-3.38)
[2017-06-21 06:53] LABS: BASO % 0.7 % (0.0-2.0); EOS # 0.2 K/uL (0.0-0.7); EOS % 3.2 % (0.0-4.0); HEMOGLOBIN 12.3 g/dL (11.0-16.0); LYMPH # 3.2 K/uL (1.0-4.3); LYMPH % 49.4 % (20.0-40.0); MEAN CORPUSCULAR HGB CONC 34.8 g/dL (33.0-37.0); MEAN PLATELET VOLUME 7.9 fL (7.2-11.7); MONO # 0.4 K/uL (0.0-0.8); MONO % 6.2 % (0.0-10.0); NEUT # 2.6 K/uL (1.8-7.0); NEUT % 40.5 % (50.0-75.0); RBC 3.74 Mil/uL (3.80-5.20); RED CELL DISTRIBUTION WIDTH 13.6 % (11.5-14.5); WHITE BLOOD COUNT 6.5 K/uL (4.8-10.8)
[2017-06-21 07:14] LABS: ALBUMIN 3.4 g/dL (3.5-5.0); ALT/SGPT 26 U/L (9-52); AST/SGOT 29 U/L (14-36); BLOOD UREA NITROGEN 15 mg/dL (7-17); CALCIUM 9.3 mg/dl (8.6-10.4); GFR AFRICAN-AMERICAN > 60; GFR NON-AFRICAN AMERICAN > 60; HDL CHOLESTEROL 39 mg/dL (30-70)
[2017-06-21 07:22] LABS: LDL CHOLESTEROL 102 mg/dL (0-129)
[2017-06-21] MEDS ORDERED: PAROXETINE PO SCH (10:00)
--- NOTE | 2017-06-21 10:28 | RAD ---
HISTORY: chest pain COMPARISON: Portable chest 08/17/2016. TECHNIQUE: Chest PA and lateral FINDINGS: LUNGS: No active pulmonary disease. PLEURA: No significant pleural effusion identified. No pneumothorax apparent. CARDIOVASCULAR: Normal. OSSEOUS STRUCTURES: No significant abnormalities. VISUALIZED UPPER ABDOMEN: Normal. OTHER FINDINGS: None. IMPRESSION: No interval acute cardiopulmonary disease appreciated.
[2017-06-21 13:18] LABS: CK-MB 0.23 ng/mL (0.0-3.38)
--- NOTE | 2017-06-21 14:37 | CP.PCM.DIS ---
Provider - Provider Date of Admission: 06/20/17 23:34 Attending physician: Frederick Diehl MD Consults: None Time Spent in preparation of Discharge (in minutes): 45 Hospital Course - Lab Results Lab Results: Most Recent Lab Values WBC 6.5 K/uL (4.8-10.8) 06/21/17 06:45 RBC 3.74 Mil/uL (3.80-5.20) L 06/21/17 06:45 Hgb 12.3 g/dL (11.0-16.0) 06/21/17 06:45 Hct 35.5 % (34.0-47.0) 06/21/17 06:45 MCV 95.0 fL (81.0-99.0) 06/21/17 06:45 MCH 33.0 pg (27.0-31.0) H 06/21/17 06:45 MCHC 34.8 g/dL (33.0-37.0) 06/21/17 06:45 RDW 13.6 % (11.5-14.5) 06/21/17 06:45 Plt Count 253 K/uL (130-400) 06/21/17 06:45 MPV 7.9 fL (7.2-11.7) 06/21/17 06:45 Neut % (Auto) 40.5 % (50.0-75.0) L 06/21/17 06:45 Lymph % (Auto) 49.4 % (20.0-40.0) H 06/21/17 06:45 [place] % (Auto) 6.2 % (0.0-10.0) 06/21/17 06:45 Eos % (Auto) 3.2 % (0.0-4.0) 06/21/17 06:45 Baso % (Auto) 0.7 % (0.0-2.0) 06/21/17 06:45 Neut # (Auto) 2.6 K/uL (1.8-7.0) 06/21/17 06:45 Lymph # (Auto) 3.2 K/uL (1.0-4.3) 06/21/17 06:45 [place] # (Auto) 0.4 K/uL (0.0-0.8) 06/21/17 06:45 Eos # (Auto) 0.2 K/uL (0.0-0.7) 06/21/17 06:45 Baso # (Auto) 0.0 K/uL (0.0-0.2) 06/21/17 06:45 PT 11.1 SECONDS (9.7-12.2) 06/20/17 22:36 INR 1.0 06/20/17 22:36 APTT 30 SECONDS (21-34) 06/20/17 22:36 Sodium 144 mmol/L (132-148) 06/21/17 06:45 Potassium 3.9 mmol/L (3.6-5.2) 06/21/17 06:45 Chloride 107 mmol/L (98-107) 06/21/17 06:45 Carbon Dioxide 27 mmol/L (22-30) 06/21/17 06:45 Anion Gap 14 (10-20) 06/21/17 06:45 BUN 15 mg/dL (7-17) 06/21/17 06:45 Creatinine 0.8 mg/dL (0.7-1.2) 06/21/17 06:45 Est GFR ( Amer) > 60 06/21/17 06:45 Est GFR (Non-Af Amer) > 60 06/21/17 06:45 Random Glucose 80 mg/dL (65-105) 06/21/17 06:45 Calcium 9.3 mg/dl (8.6-10.4) 06/21/17 06:45 Phosphorus 4.1 mg/dL (2.5-4.5) 06/21/17 06:45 Magnesium 2.1 mg/dL (1.6-2.3) 06/21/17 06:45 Total Bilirubin 0.8 mg/dL (0.2-1.3) 06/21/17 06:45 AST 29 U/L (14-36) 06/21/17 06:45 ALT 26 U/L (9-52) 06/21/17 06:45 Alkaline Phosphatase 72 U/L (38-126) 06/21/17 06:45 Total Creatine Kinase 202 U/L (30-135) H 06/21/17 12:45 CK-MB (Mass) 0.23 ng/mL (0.0-3.38) 06/21/17 12:45 Troponin I < 0.0120 ng/mL (0.00-0.120) 06/21/17 12:45 Total Protein 6.6 g/dL (6.3-8.3) 06/21/17 06:45 Albumin 3.4 g/dL (3.5-5.0) L 06/21/17 06:45 Globulin 3.2 gm/dL (2.2-3.9) 06/21/17 06:45 Albumin/Globulin Ratio 1.0 (1.0-2.1) 06/21/17 06:45 Triglycerides 71 mg/dL (0-149) D 06/21/17 06:45 Cholesterol 161 mg/dL (0-199) 06/21/17 06:45 LDL Cholesterol Direct 102 mg/dL (0-129) 06/21/17 06:45 HDL Cholesterol 39 mg/dL (30-70) 06/21/17 06:45 Urine Color Yellow (YELLOW) 06/20/17 22:54 Urine Clarity Hazy (Clear) 06/20/17 22:54 Urine pH 5.0 (5.0-8.0) 06/20/17 22:54 Ur Specific [place] 1.020 (1.003-1.030) 06/20/17 22:54 Urine Protein Negative mg/dL (NEGATIVE) 06/20/17 22:54 Urine Glucose (UA) Normal mg/dL (Normal) 06/20/17 22:54 Urine Ketones Negative mg/dL (NEGATIVE) 06/20/17 22:54 Urine Blood Negative (NEGATIVE) 06/20/17 22:54 Urine Nitrate Negative (NEGATIVE) 06/20/17 22:54 Urine Bilirubin Negative (NEGATIVE) 06/20/17 22:54 Urine Urobilinogen Normal mg/dL (0.2-1.0) 06/20/17 22:54 Ur Leukocyte Esterase 1+ [place]/uL (Negative) H 06/20/17 22:54 Urine WBC (Auto) 12 /hpf (0-5) H 06/20/17 22:54 Urine RBC (Auto) 1 /hpf (0-3) 06/20/17 22:54 Ur Squamous Epith Cells 11 /hpf (0-5) H 06/20/17 22:54 Urine Bacteria Few (<OCC) H 06/20/17 22:54 - Hospital Course Hospital Course: Attending: Dr. Thornton. Consults: none Procedures- none No complications DC diagnoses 1. Chest pain, r/o acs 2. UTI 3. Depression 4. HLD HPI: see h/p Labs: see lab data section Hospital course: 1. Chest pain, ACS r/o -EKG: normal sinus rhythm, no new changes -trops negative x 3 -plavix given 75 daily as pt has allergy to ASA -pt given daily crestor 2. Hx of anxiety -continue home atarax 3. hx of depression -continue home paxil 4. Urinary tract infection -pt is on bactrim, finish 7 day course 5. Hx of HLD -continue daily crestor 6. Hx of HTN -continue daily HCTZ Discharge rx 1. Bactrim 2. Plavix 3. atarax 4. simvastatin 5. paxil 6. HCTZ discharge instructions 1. Please return if condition worsens 2. please follow up with Dr. Oswald 3. please take all meds as prescribed. - Date & Time of H&P Date of H&P: 06/21/17 Time of H&P: 00:56 Discharge Exam - Head Exam Head Exam: NORMAL INSPECTION, NORMOCEPHALIC - Eye Exam Eye Exam: EOMI - Neck Exam Neck exam: Full Rom, Normal Inspection - Respiratory Exam Respiratory Exam: NORMAL BREATHING PATTERN, UNREMARKABLE - Cardiovascular Exam Cardiovascular Exam: +S1, +S2 - GI/Abdominal Exam GI & Abdominal Exam: Normal Bowel Sounds - Extremities Exam Extremities exam: full ROM, normal inspection - Neurological Exam Neurological exam: Alert, CN II-XII Intact, Oriented x3 - Psychiatric Exam Psychiatric exam: Normal Affect, Normal Mood - Skin Skin Exam: Dry, Intact, Normal Color, Warm Discharge Plan - Follow Up Plan Condition: STABLE Disposition: HOME/ ROUTINE Patient education suggested?: Yes Instructions: Chest Pain Additional Instructions: please return if condition worsens please follow up with PMD Dr. Oswald. Referrals: Juan Oswald [Staff Provider] -
[2017-06-21] MEDS: Aluminum Hydroxide/Magnesium Hydroxide Susp (30 mL) PO ONE ×2 (14:55→14:56)
[2017-06-21 16:28] VITALS: BP 121/69; RESP 18; TEMP 97.9; O2SAT 97
[2017-06-21 16:32] VITALS: PULSE 73
[2017-06-21] MEDS ORDERED: Rosuvastatin Calcium 2.5 mg Tab PO SCH (22:00)
[2017-06-22] MEDS ORDERED: PAROXETINE PO SCH (10:00)
== END 2017-06-21 18:30 | disposition home or self-care (01) ==
LOC: C.ER 21:56 → C.6T 23:34
PROVIDERS: ADMIT Family Medicine; ATTEND Family Medicine
DX: R07.89 Other chest pain (principal); F32.9 Major depressive disorder, single episode, unspecified; F41.9 Anxiety disorder, unspecified; E78.5 Hyperlipidemia, unspecified; I10 Essential (primary) hypertension; J45.909 Unspecified asthma, uncomplicated; M06.9 Rheumatoid arthritis, unspecified; N39.0 Urinary tract infection, site not specified; Z79.899 Other long term (current) drug therapy; Z88.6 Allergy status to analgesic agent

== ENCOUNTER 2017-10-25 09:57 | Inpatient (IN) | payer MEDICARE, MEDICAID ==
[2017-10-25] MEDS ORDERED: Sodium Chloride 0.9% 1,000 ML IV ONE ×2 (10:19→12:19)
--- NOTE | 2017-10-25 10:37 | C.PDOC ---
History Of Present Illness 62 year old female with hx of morbid obesity; s/p gastric sleeve comes in for evaluation of epigastric pain and diffuse lower abdominal pain for x2 days associated with nausea and dizziness. Patient reports, she woke up at 5 am with room-spinning dizziness. Patient admits, dizziness is position now, with movement. Otherwise, patient denies headache, vertigo, visual changes, focal deficits, neck pain, CP, SOB, dyspnea, palpitation, diaphoresis, vomiting, diarrhea, back pain, UTI sx. AT present time, appears comfortable, not in any apparent distress. Time Seen by Provider: 10/25/17 10:11 Chief Complaint (Nursing): Abdominal Pain History Per: Patient History/Exam Limitations: no limitations Onset/Duration Of Symptoms: Days (x2) Current Symptoms Are (Timing): Still Present Location Of Pain/Discomfort: RLQ, Epigastric, LLQ Past Medical History Reviewed: Historical Data, Nursing Documentation, Vital Signs Vital Signs: Last Vital Signs Temp 98 F 10/25/17 10:06 Pulse 80 10/25/17 10:06 Resp 16 10/25/17 10:06 BP 126/76 10/25/17 10:06 Pulse Ox 99 10/25/17 13:23 - Medical History PMH: Anxiety, Arthritis, Asthma, Depression, HTN, Rheumatoid Arthritis Surgical History: Appendectomy, Cholecystectomy, Tonsillectomy - [facility] TETANUS TOXOID ADMINIST (08/10/14) Family History: States: Unknown Family Hx - Social History Hx Tobacco Use: No Hx Alcohol Use: No Hx Substance Use: No - Immunization History Hx Tetanus Toxoid Vaccination: No Hx Influenza Vaccination: No Hx Pneumococcal Vaccination: Yes Review Of Systems Except As Marked, All Systems Reviewed And Found Negative. Eyes: Negative for: Vision Change Cardiovascular: Negative for: Chest Pain Respiratory: Negative for: Shortness of Breath Gastrointestinal: Positive for: Nausea, Abdominal Pain (epigastric and lower abdominal ). Negative for: Vomiting, Diarrhea Neurological: Positive for: Dizziness. Negative for: Headache, Other (focal deficits) Physical Exam - Physical Exam Appears: Well, Non-toxic, No Acute Distress Skin: Normal Color, Warm, Dry Head: Atraumatic, Normacephalic Eye(s): bilateral: PERRL, EOMI, Other (no nystagmus) Ear(s): Bilateral: Normal Nose: No Flaring, No Discharge Oral Mucosa: Moist, No Drooling Tongue: Normal Appearing Lips: Normal Appearing Throat: No Erythema, No Drooling Neck: Trachea Midline, Supple Cardiovascular: Rhythm Regular, No Murmur, No JVD, Other ((-) carotid bruits B/L ) Respiratory: No Decreased Breath Sounds, No Accessory Muscle Use, No Stridor, No Wheezing Gastrointestinal/Abdominal: Soft, Tenderness (mild suprapubic tenderness), No Distention, No Guarding, No Rebound Back: No CVA Tenderness Extremity: Normal ROM (x4), No Deformity, No Swelling Neurological/Psych: Oriented x3, Normal Speech, Normal Motor, Normal Sensation, Normal Reflexes, No Other (focal deficits) Gait: Steady ED Course And Treatment - Laboratory Results Result Diagrams: 10/25/17 10:42 10/25/17 10:42 Lab Interpretation: No Acute Changes ECG: Interpreted By Me, Viewed By Me ECG Rhythm: Sinus Rhythm ECG Interpretation: Normal, No Acute Changes Interpretation Of ECG: SR@78/min, NAD, no acute T wave or ST-T changes. Rate From EC O2 Sat by Pulse Oximetry: 99 (RA) Pulse Ox Interpretation: Normal - Radiology CXR: Interpreted by Me, Read By Radiologist CXR Interpretation: Yes: No Acute Disease - Other Rad chest X-Ray: Read By Radiologist Interpretation: Accession No. : [id number]. Patient Name / ID : MISTI ORTIZ / [id number]. Exam Date : 10/25/2017 10:33:49 ( Approved ). Study Comment : Sex / Age : F / [id number]. Creator : Igor Recinos MD. Dictator : Igor Recinos MD. Store Associate : Post Hole Digging Machine Operator : Igor Recinos MD. Approver2 : Report Date : 10/25/2017 10:50:59. My Comment : . Date of service: 10/25/2017. HISTORY: dizziness. COMPARISON: Chest radiograph dated 06/20/2017. FINDINGS: LUNGS: No active pulmonary disease. PLEURA: No significant pleural effusion identified, no pneumothorax apparent. CARDIOVASCULAR: Atherosclerotic aortic calcifications. Cardiomediastinal silhouette within normal limits. OSSEOUS STRUCTURES: Unchanged. VISUALIZED UPPER ABDOMEN: Normal. OTHER FINDINGS: None. IMPRESSION: No active disease. - CT Scan/US CT head w/o contrast Other Rad Studies (CT/US): Radiology Report Reviewed CT/US Interpretation: reator : Igor Recinos MD. Dictator : Igor Recinos MD. Store Associate : Post Hole Digging Machine Operator : Igor Recinos MD. Approver2 : Report Date : 10/25/2017 12:51:06. My Comment : . Date of service: 2017. PROCEDURE: CT HEAD WITHOUT CONTRAST. HISTORY: dizziness. COMPARISON: CT head dated 08/17/2016. TECHNIQUE: Axial computed tomography images were obtained through the head/brain without intravenous contrast. Radiation dose: Total exam DLP = 970.8 mGy-cm. This CT exam was performed using one or more of the following dose reduction techniques: Automated exposure control, adjustment of the mA and/or kV according to patient size, and/or use of iterative reconstruction technique. FINDINGS: HEMORRHAGE: No intracranial hemorrhage. BRAIN: No mass effect or edema. Mild atrophy. Mild chronic microvascular ischemic changes. VENTRICLES: Unremarkable. No hydrocephalus. CALVARIUM: Unremarkable. PARANASAL SINUSES: Right maxillary sinus secretion. MASTOID AIR CELLS: Unremarkable as visualized. No inflammatory changes. OTHER FINDINGS : None. IMPRESSION: No acute intracranial pathology. Age-related changes. Right maxillary sinus disease Progress Note: Impression: epigastric and lower abdominal pain. Plans: -- blood work. -- CXR. -- antivert. -- pepcid. -- IV fluids. -- Zofran Injection. -- UA. On re-eval at 12:09, pt still c/o dizziness " room is spinning when Im trying to sit up". Regaln 10mg, CT head w/o contrast ordere. On re-eval at 13:10, pt still c/o dizziness, nausea,pt sts " had episode of vomiting, while in CT". Neck: Supple, (-) JVD. Lungs: CTA B/L, BS equal B/L. Abd: Soft, no rebound or guarding. Neurologically intact. CT head review, no acute abnormalities, mild Right max sinus ds. Pt has clinical findings c/w dizizness/vertigo, sinusitis, no improvement after ED tx. case discussed with and admission arranged. agrees with plan and dispo. 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 - Scribe Statement The provider has reviewed the documentation as recorded by the Jimy Kincaid Do All medical record entries made by the Scribe were at my direction and personally dictated by me. I have reviewed the chart and agree that the record accurately reflects my personal performance of the history, physical exam, medical decision making, and the department course for this patient. I have also personally directed, reviewed, and agree with the discharge instructions and disposition.
[2017-10-25] MEDS ORDERED: Sodium Chloride 0.9% 1,000 ML ONE ×2 (10:45→12:30)
[2017-10-25 10:47] LABS: HEMOGLOBIN 13.4 g/dL (11.0-16.0); LYMPH # 2.6 K/uL (1.0-4.3); MONO # 0.5 K/uL (0.0-0.8); NEUT # 3.2 K/uL (1.8-7.0)
[2017-10-25 10:50] LABS: BASO % 0.7 % (0.0-2.0); EOS # 0.2 K/uL (0.0-0.7); EOS % 2.8 % (0.0-4.0); LYMPH % 39.9 % (20.0-40.0); MEAN CELL VOLUME 95.1 fL (81.0-99.0); MEAN CORPUSCULAR HGB CONC 34.8 g/dL (33.0-37.0); MEAN PLATELET VOLUME 8.1 fL (7.2-11.7); MONO % 7.6 % (0.0-10.0); NRBC % 0.1 % (0.0-2.0); RBC 4.06 Mil/uL (3.80-5.20); RED CELL DISTRIBUTION WIDTH 13.5 % (11.5-14.5); WHITE BLOOD COUNT 6.6 K/uL (4.8-10.8)
--- NOTE | 2017-10-25 10:52 | RAD ---
Date of service: 10/25/2017 HISTORY: dizziness COMPARISON: Chest radiograph dated 06/20/2017. FINDINGS: LUNGS: No active pulmonary disease. PLEURA: No significant pleural effusion identified, no pneumothorax apparent. CARDIOVASCULAR: Atherosclerotic aortic calcifications. Cardiomediastinal silhouette within normal limits. OSSEOUS STRUCTURES: Unchanged. VISUALIZED UPPER ABDOMEN: Normal. OTHER FINDINGS: None. IMPRESSION: No active disease.
[2017-10-25 10:54] LABS: PROTHROMBIN TIME 10.8 SECONDS (9.7-12.2)
[2017-10-25 10:58] LABS: ALB/GLOB RATIO 1.5 (1.0-2.1); ALBUMIN 4.2 g/dL (3.5-5.0); ALT/SGPT 20 U/L (9-52); AST/SGOT 22 U/L (14-36); BLOOD UREA NITROGEN 20 mg/dL (7-17); CALCIUM 9.1 mg/dl (8.6-10.4); GFR NON-AFRICAN AMERICAN > 60; LIPASE 66 U/L (23-300)
[2017-10-25 12:05] LABS: SQUAMOUS EPITHIAL 1 /hpf (0-5); URINE BACTERIA RARE (<OCC); URINE BILIRUBIN NEGATIVE (NEGATIVE); URINE BLOOD NEGATIVE (NEGATIVE); URINE CLARITY Clear (Clear); URINE COLOR Straw (YELLOW); URINE GLUCOSE (UA) NORMAL (Normal); URINE LEUKOCYTE ESTERASE NEG Leu/uL (Negative); URINE PROTEIN NEGATIVE (NEGATIVE); URINE UROBILINOGEN NORMAL mg/dL (0.2-1.0)
--- NOTE | 2017-10-25 12:52 | CT ---
Date of service: 10/25/2017 PROCEDURE: CT HEAD WITHOUT CONTRAST. HISTORY: dizziness COMPARISON: CT head dated 08/17/2016. TECHNIQUE: Axial computed tomography images were obtained through the head/brain without intravenous contrast. Radiation dose: Total exam DLP = 970.8 mGy-cm. This CT exam was performed using one or more of the following dose reduction techniques: Automated exposure control, adjustment of the mA and/or kV according to patient size, and/or use of iterative reconstruction technique. FINDINGS: HEMORRHAGE: No intracranial hemorrhage. BRAIN: No mass effect or edema. Mild atrophy. Mild chronic microvascular ischemic changes. VENTRICLES: Unremarkable. No hydrocephalus. CALVARIUM: Unremarkable. PARANASAL SINUSES: Right maxillary sinus secretion. MASTOID AIR CELLS: Unremarkable as visualized. No inflammatory changes. OTHER FINDINGS: None. IMPRESSION: No acute intracranial pathology. Age-related changes. Right maxillary sinus disease
[2017-10-25] MEDS ORDERED: MethylPREDNISolone 40 mg Vial IVP STA (13:52)
[2017-10-25] MEDS ORDERED: Moxifloxacin IV 400mg/250ml NS 400 MG/250 ML BAG IV ONE (13:55)
[2017-10-25] MEDS ORDERED: Moxifloxacin IV 400mg/250ml NS 400 MG/250 ML BAG IVPB ONE (14:01)
[2017-10-25] MEDS ORDERED: MethylPREDNISolone 40 mg Vial ONE (14:01)
[2017-10-25 17:18] VITALS: RESP 20
[2017-10-26] MEDS: Pantoprazole 40 mg EC Tab PO SCH (10:22)
[2017-10-26] MEDS: Enoxaparin 40 mg Syringe SC SCH (10:22)
--- NOTE | 2017-10-26 14:03 | CP.PCM.HP ---
History of Present Illness - History of Present Illness History of Present Illness: 62 year old female with PMH of HTN, RA, Depression, Asthma, morbid obesity seen post gastric sleeve comes in for evaluation of epigastric pain and lower abdominal pain which is ongoing since past 2 days. The symptoms are associated with nausea and dizziness. Pateint had a dizziness episode when she woke up at 5 am in the morning. Patient denies headache, vertigo, visual changes. focal deficits, neck-pain, sob, dyspnea, palpitations, vomiting, diarrhea, backpain, UTI. Currently the patient appears comfortable with no apparent distress. Present on Admission - Present on Admission Any Indicators Present on Admission: No Past Patient History - Infectious Disease Hx of Infectious Diseases: None - Past Medical History & Family History Past Medical History?: Yes - Past Social History Smoking Status: Never Smoked - CARDIAC Hx Hypertension: Yes - PULMONARY Hx Asthma: Yes - NEUROLOGICAL Hx Migraine: No - HEENT Hx HEENT Problems: No - RENAL Hx Chronic Kidney Disease: No - ENDOCRINE/METABOLIC Hx Diabetes Mellitus Type 2: No (PRE DIABETIC ) - HEMATOLOGICAL/ONCOLOGICAL Hx Blood Disorders: No - INTEGUMENTARY Hx Dermatological Problems: No - MUSCULOSKELETAL/RHEUMATOLOGICAL Hx Arthritis: Yes Hx Rheumatoid Arthritis: Yes - GASTROINTESTINAL Hx Gastrointestinal Disorders: No - GENITOURINARY/GYNECOLOGICAL Hx Genitourinary Disorders: No - PSYCHIATRIC Hx Anxiety: Yes Hx Depression: Yes Hx Substance Use: No - SURGICAL HISTORY Hx Appendectomy: Yes Hx Cholecystectomy: Yes Hx Tonsillectomy: Yes - ANESTHESIA Hx Anesthesia: Yes Hx Anesthesia Reactions: No Meds Allergies/Adverse Reactions: Allergies Allergy/AdvReac Type Severity Reaction Status Date / Time acetaminophen [From Percocet] Allergy Verified 10/25/17 10:01 aspirin Allergy Verified 10/25/17 10:01 ceftriaxone Allergy Verified 10/25/17 10:01 oxycodone [From Percocet] Allergy Verified 10/25/17 10:01 Penicillins Allergy Verified 10/25/17 10:01 Physical Exam - Constitutional Appears: Well - Head Exam Head Exam: ATRAUMATIC, NORMAL INSPECTION, NORMOCEPHALIC - Eye Exam Eye Exam: EOMI, Normal appearance, PERRL Pupil Exam: NORMAL ACCOMODATION, PERRL - ENT Exam ENT Exam: Mucous Membranes Moist, Normal Exam - Neck Exam Neck exam: Positive for: Normal Inspection - Respiratory Exam Respiratory Exam: Decreased Breath Sounds - Cardiovascular Exam Cardiovascular Exam: REGULAR RHYTHM, +S1, +S2 - GI/Abdominal Exam GI & Abdominal Exam: Diminished Bowel Sounds, Soft - Rectal Exam Rectal Exam: Deferred Results - Vital Signs Recent Vital Signs: Last Vital Signs Temp 99.4 F 10/26/17 08:00 Pulse 69 10/26/17 08:00 Resp 20 10/26/17 08:00 BP 110/70 10/26/17 08:00 Pulse Ox 98 10/26/17 12:21 - Labs Result Diagrams: 10/25/17 10:42 10/25/17 10:42 Assessment & Plan - Assessment and Plan (Free Text) Plan: IV mouth moxifloxacin Plavix Follow-up with the urine culture Blood culture no growth Urine culture ordered Follow-up with the neurology As ordered
[2017-10-26] MEDS: Moxifloxacin IV 400mg/250ml NS 400 MG/250 ML BAG IVPB SCH (14:44)
--- NOTE | 2017-10-27 07:34 | CP.PCM.CON ---
History of Present Illness - History of Present Illness History of Present Illness: CONSULT DICTATED BENIGN POXYSMAL POSITIONAL VERTIGO IVF STEROID MRI STABLE X 24 HRS D/C AND FOLLOW UP AN OP Past Patient History - Infectious Disease Hx of Infectious Diseases: None - Past Medical History & Family History Past Medical History?: Yes - Past Social History Smoking Status: Never Smoked - CARDIAC Hx Hypertension: Yes - PULMONARY Hx Asthma: Yes - NEUROLOGICAL Hx Migraine: No - HEENT Hx HEENT Problems: No - RENAL Hx Chronic Kidney Disease: No - ENDOCRINE/METABOLIC Hx Diabetes Mellitus Type 2: No (PRE DIABETIC ) - HEMATOLOGICAL/ONCOLOGICAL Hx Blood Disorders: No - INTEGUMENTARY Hx Dermatological Problems: No - MUSCULOSKELETAL/RHEUMATOLOGICAL Hx Arthritis: Yes Hx Rheumatoid Arthritis: Yes - GASTROINTESTINAL Hx Gastrointestinal Disorders: No - GENITOURINARY/GYNECOLOGICAL Hx Genitourinary Disorders: No - PSYCHIATRIC Hx Anxiety: Yes Hx Depression: Yes Hx Substance Use: No - SURGICAL HISTORY Hx Appendectomy: Yes Hx Cholecystectomy: Yes Hx Tonsillectomy: Yes - ANESTHESIA Hx Anesthesia: Yes Hx Anesthesia Reactions: No Meds Allergies/Adverse Reactions: Allergies Allergy/AdvReac Type Severity Reaction Status Date / Time acetaminophen [From Percocet] Allergy Verified 10/25/17 10:01 aspirin Allergy Verified 10/25/17 10:01 ceftriaxone Allergy Verified 10/25/17 10:01 oxycodone [From Percocet] Allergy Verified 10/25/17 10:01 Penicillins Allergy Verified 10/25/17 10:01 - Medications Medications: Current Medications Clopidogrel Bisulfate (Plavix) 75 mg PO DAILY [facility] Last Admin: 10/26/17 10:22 Dose: 75 mg Enoxaparin Sodium (Lovenox) 40 mg SC DAILY [facility] Last Admin: 10/26/17 10:22 Dose: 40 mg Moxifloxacin HCl (Avelox Iv 400mg/250ml Ns) 400 mg in 250 mls @ 167 mls/hr IVPB Q24H [facility] PRN Reason: Protocol Last Admin: 10/26/17 14:44 Dose: 167 mls/hr Dextrose/Sodium Chloride (Dextrose 5%/0.45% Ns 1000 Ml) 1,000 mls @ 100 mls/hr IV .Q10H [facility] Lorazepam (Ativan) 1 mg IVP ONCE ONE Stop: 10/27/17 07:31 Meclizine HCl (Antivert) 12.5 mg PO Q12H PRN PRN Reason: Dizziness Last Admin: 10/26/17 11:27 Dose: 12.5 mg Methylprednisolone (Solu-Medrol) 125 mg IV Q12 [facility] Stop: 10/29/17 23:59 Ondansetron HCl (Zofran Inj) 4 mg IVP Q6 PRN PRN Reason: Nausea/Vomiting Pantoprazole Sodium (Protonix Ec Tab) 40 mg PO DAILY [facility] Last Admin: 10/26/17 10:22 Dose: 40 mg Rosuvastatin Calcium (Crestor) 10 mg PO HS [facility] Last Admin: 10/26/17 21:20 Dose: 10 mg Results - Vital Signs Recent Vital Signs: Last Vital Signs Temp 98.9 F 10/26/17 23:28 Pulse 70 10/26/17 23:28 Resp 20 10/26/17 23:28 BP 104/66 10/26/17 23:28 Pulse Ox 98 10/26/17 23:59 - Labs Result Diagrams: 10/25/17 10:42 10/25/17 10:42
[2017-10-27] MEDS: Pantoprazole 40 mg EC Tab PO SCH (11:09)
[2017-10-27] MEDS: Dextrose 5%/0.45% NS 1,000 ML IV SCH ×2 (11:10→18:15)
[2017-10-27] MEDS: Enoxaparin 40 mg Syringe SC SCH (11:13)
--- NOTE | 2017-10-27 12:40 | CARD ---
APPROVED REPORT Date of service: 10/25/2017 EKG Measurement Heart [id number] <Conclusion> Normal sinus rhythm Possible Left atrial enlargement Borderline ECG
[2017-10-27 13:53] LABS: FREE T4 0.89 ng/dL (0.78-2.19)
[2017-10-27] MEDS: Moxifloxacin IV 400mg/250ml NS 400 MG/250 ML BAG IVPB SCH (14:00)
--- NOTE | 2017-10-27 15:17 | CP.PCM.PN ---
Subjective - Date & Time of Evaluation Date of Evaluation: 10/27/17 Time of Evaluation: 09:00 - Subjective Subjective: clinically same Objective - Vital Signs/Intake and Output Vital Signs (last 24 hours): Temp Pulse Resp BP Pulse Ox 98.2 F 70 20 122/78 96 10/27/17 09:59 10/27/17 09:59 10/27/17 09:59 10/27/17 09:59 10/27/17 12:00 Intake and Output: 10/27/17 10/27/17 06:59 18:59 Intake Total 100 Balance 100 - Medications Medications: Current Medications Clopidogrel Bisulfate (Plavix) 75 mg PO DAILY [facility] Last Admin: 10/27/17 11:09 Dose: 75 mg Enoxaparin Sodium (Lovenox) 40 mg SC DAILY [facility] Last Admin: 10/27/17 11:13 Dose: 40 mg Moxifloxacin HCl (Avelox Iv 400mg/250ml Ns) 400 mg in 250 mls @ 167 mls/hr IVPB Q24H [facility] PRN Reason: Protocol Last Admin: 10/27/17 14:00 Dose: 167 mls/hr Dextrose/Sodium Chloride (Dextrose 5%/0.45% Ns 1000 Ml) 1,000 mls @ 100 mls/hr IV .Q10H [facility] Last Admin: 10/27/17 11:10 Dose: 100 mls/hr Methylprednisolone (Solu-Medrol) 125 mg IV Q12 [facility] Stop: 10/29/17 23:59 Last Admin: 10/27/17 11:04 Dose: 125 mg Ondansetron HCl (Zofran Inj) 4 mg IVP Q6 PRN PRN Reason: Nausea/Vomiting Pantoprazole Sodium (Protonix Ec Tab) 40 mg PO DAILY [facility] Last Admin: 10/27/17 11:09 Dose: 40 mg Rosuvastatin Calcium (Crestor) 10 mg PO HS [facility] Last Admin: 10/26/17 21:20 Dose: 10 mg - Labs Labs: 10/25/17 10:42 10/25/17 10:42 PT 10.8 SECONDS (9.7-12.2) 10/25/17 10:42 INR 1.0 10/25/17 10:42 APTT 24 SECONDS (21-34) 10/25/17 10:42 - Constitutional Appears: Well - Head Exam Head Exam: ATRAUMATIC, NORMAL INSPECTION, NORMOCEPHALIC - Eye Exam Eye Exam: EOMI, Normal appearance, PERRL Pupil Exam: NORMAL ACCOMODATION, PERRL - ENT Exam ENT Exam: Mucous Membranes Moist, Normal Exam - Neck Exam Neck Exam: Full ROM, Normal Inspection. absent: Lymphadenopathy - Respiratory Exam Respiratory Exam: Decreased Breath Sounds - Cardiovascular Exam Cardiovascular Exam: REGULAR RHYTHM, +S1, +S2 - GI/Abdominal Exam GI & Abdominal Exam: Soft, Diminished Bowel Sounds - Rectal Exam Rectal Exam: Deferred
[2017-10-28] MEDS: Dextrose 5%/0.45% NS 1,000 ML IV SCH ×2 (04:15→14:37)
--- NOTE | 2017-10-28 08:19 | CON ---
DATE: 10/27/2017 ATTENDING PHYSICIAN: Tawana Saunders MD LOCATION: The patient is in room #369, bed B. REASON FOR CONSULTATION: Dizziness. CHIEF COMPLAINT: The patient was brought into [facility] with a history of recurrent dizziness for the last two days. From neurological point of view, I was called in to evaluate her for further management. HISTORY OF PRESENT ILLNESS: The patient is a 62-year-old right-handed [place]ian-speaking female presenting with three to four days history of dizziness. This dizziness happened all of a sudden associating with vertiginous feeling, nausea, vomiting. No visual disturbances. No double vision. No history of headache at present. History of hearing difficulty on the left side. No tinnitus. At times, she loses her balance. Never had these symptoms before. This is a new symptom. No association with change in mental status or loss of consciousness. PAST MEDICAL HISTORY: Anxiety, arthritis, asthma, depression, hypertension, rheumatoid arthritis. PAST SURGICAL HISTORY: Appendectomy, cholecystectomy, tonsillectomy, and tubal ligation. PERSONAL HISTORY: Denies smoking or alcohol use. ALLERGIES: NO KNOWN ALLERGIES. REVIEW OF SYSTEMS: A 12-point system being reviewed. From neuro, [facility]. PHYSICAL EXAMINATION: VITAL SIGNS: Blood pressure 120/78, mean arterial pressure of 92, temperature 98, pulse rate 80. NECK: Supple. No carotid bruits. HEART: Sounds regular. CHEST: Fair air entry. EXTREMITIES: No edema in legs. NEUROLOGICAL: Mental status: She is awake, alert, oriented to person, place and time. Speech is clear. Naming, repetition, fluency, comprehension all within normal. Cranial nerve: Visual field intact. Pupils reactive. Extraocular movement normal. No nystagmus. No facial sensory deficit. No facial asymmetry. Hearing is normal. Tongue is midline. Good gag. Motor: On outstretched hand with eyes closed, no drift noted. Power is symmetric on either side. Deep tendon reflexes biceps, brachialis, triceps 2+; both knees are 3+; both ankles are 2+. Plantars are downgoing. Coordination: [id number] test is intact. No nystagmus. On right lateral movement, reproducible dizziness, keeping her eyes closed. Hearing is normal and finger rubbing on both sides. Gait is deferred at this time. CONCLUSION: As per neurological examination, the patient has been suffering from possible benign paroxysmal positional vertigo. The current examination does not show any long tract signs. WORKUP: CT of the head, no ischemic process. EKG, normal sinus rhythm. BLOOD WORKUP: WBC 6.6, hemoglobin 13.4, hematocrit 38.6, platelet 210. PT 10.8, INR 1, PTT 24. Sodium 142, potassium 4, chloride 105, bicarbonate 27, BUN 20, creatinine 0.6. Urinalysis normal. RECOMMENDATIONS: 1. IV fluids. 2. Pulsing dose of steroids for two days. 3. Antivert can be given on p.r.n. basis. 4. IV fluids should be dextrose half normal saline, maybe 100 mL/h. If the patient is stable for the next 24-hour period, the patient can be discharged and should have followup visit with me as outpatient. Velasquez Robles MD [facility]
[2017-10-28] MEDS: Enoxaparin 40 mg Syringe SC SCH (10:00)
[2017-10-28] MEDS: Pantoprazole 40 mg EC Tab PO SCH (10:00)
--- NOTE | 2017-10-28 11:32 | PN ---
DATE: 10/28/2017 TIME OF EVALUATION: 07:10 a.m. NEUROLOGICAL PROBLEM: Benign paroxysmal positional vertigo. PHYSICAL EXAMINATION: VITAL SIGNS: Blood pressure 142/88, mean atrial pressure 160, respiratory rate 18, temperature 97.7 with pulse rate 85. The patient is still complaining of dizziness; however, she is ambulatory on her own with a broad based gait. Examination does not show any nystagmus or any cerebellar dysfunction. WORKUP: MRI of the brain has been reviewed. No acute pathology is noted. RECOMMENDATION: Continue IV hydration as recommended. The patient is on empirical pulsing dose of steroids, which can be discontinued on 10/29/2017, that would be tomorrow. The patient can continue the meclizine as directed as a p.r.n. basis. Rest of the drug should be continued as per Medicine. The patient is neurologically cleared. The patient can be followed by me as outpatient. Velasquez Robles MD
--- NOTE | 2017-10-28 13:13 | MRI ---
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 TECHNIQUE: Multiplanar, multisequence MR images of the brain were obtained without intravenous contrast enhancement. FINDINGS: HEMORRHAGE: None DWI: No evidence of an acute or early subacute infarction. BRAIN PARENCHYMA: Limited white-matter signal abnormalities are identified scattered at the centrum semiovale and subcortical frontal and parietal lobes bilaterally in a pattern most compatible chronic microangiopathy. No cortical edema is identified. No mass effect. Midline brain anatomy is unremarkable including the corpus callosum or posterior fossa contents remain unremarkable including the brainstem. No suspicious extra-axial fluid collection identified. VENTRICLES: Unremarkable. No hydrocephalus. CRANIUM: Unremarkable. ORBITS: Grossly unremarkable. PARANASAL SINUSES/MASTOIDS: Limited left maxillary sinus disease reiterated. VASCULAR SYSTEM: Skull base flow voids intact. OTHER FINDINGS: None. IMPRESSION: Limited age-related neuro degenerative findings. No acute brain infarction, mass effect or hydrocephalus. No suspicious extra-axial fluid collection appreciable..
[2017-10-28] MEDS: Moxifloxacin IV 400mg/250ml NS 400 MG/250 ML BAG IVPB SCH (14:36)
--- NOTE | 2017-10-28 16:54 | CP.PCM.PN ---
Subjective - Date & Time of Evaluation Date of Evaluation: 10/28/17 Time of Evaluation: 09:00 - Subjective Subjective: clinically same Objective - Vital Signs/Intake and Output Vital Signs (last 24 hours): Temp Pulse Resp BP Pulse Ox 98.4 F 84 20 132/70 92 L 10/28/17 15:59 10/28/17 15:59 10/28/17 15:59 10/28/17 15:59 10/28/17 15:59 Intake and Output: 10/28/17 10/28/17 06:59 18:59 Intake Total 1800 1380 Balance 1800 1380 - Medications Medications: Current Medications Clopidogrel Bisulfate (Plavix) 75 mg PO DAILY [facility] Last Admin: 10/28/17 10:00 Dose: 75 mg Enoxaparin Sodium (Lovenox) 40 mg SC DAILY [facility] Last Admin: 10/28/17 10:00 Dose: 40 mg Moxifloxacin HCl (Avelox Iv 400mg/250ml Ns) 400 mg in 250 mls @ 167 mls/hr IVPB Q24H [facility] PRN Reason: Protocol Last Admin: 10/28/17 14:36 Dose: 167 mls/hr Dextrose/Sodium Chloride (Dextrose 5%/0.45% Ns 1000 Ml) 1,000 mls @ 100 mls/hr IV .Q10H [facility] Last Admin: 10/28/17 14:37 Dose: Not Given Methylprednisolone (Solu-Medrol) 125 mg IV Q12 [facility] Stop: 10/29/17 23:59 Last Admin: 10/28/17 10:01 Dose: 125 mg Ondansetron HCl (Zofran Inj) 4 mg IVP Q6 PRN PRN Reason: Nausea/Vomiting Pantoprazole Sodium (Protonix Ec Tab) 40 mg PO DAILY [facility] Last Admin: 10/28/17 10:00 Dose: 40 mg Rosuvastatin Calcium (Crestor) 10 mg PO HS [facility] Last Admin: 10/27/17 21:30 Dose: 10 mg - Labs Labs: 10/25/17 10:42 10/25/17 10:42 PT 10.8 SECONDS (9.7-12.2) 10/25/17 10:42 INR 1.0 10/25/17 10:42 APTT 24 SECONDS (21-34) 10/25/17 10:42 - Constitutional Appears: Well - Head Exam Head Exam: ATRAUMATIC, NORMAL INSPECTION, NORMOCEPHALIC - Eye Exam Eye Exam: EOMI, Normal appearance, PERRL Pupil Exam: NORMAL ACCOMODATION, PERRL - ENT Exam ENT Exam: Mucous Membranes Moist, Normal Exam - Neck Exam Neck Exam: Full ROM, Normal Inspection. absent: Lymphadenopathy - Respiratory Exam Respiratory Exam: Decreased Breath Sounds - Cardiovascular Exam Cardiovascular Exam: REGULAR RHYTHM, +S1, +S2 - GI/Abdominal Exam GI & Abdominal Exam: Soft, Diminished Bowel Sounds - Rectal Exam Rectal Exam: Deferred
--- NOTE | 2017-10-28 18:35 | CON ---
DATE OF CONSULTATION: 10/28/2017 REASON FOR CONSULTATION: Dizziness. REQUESTING PHYSICIAN: Dr. Saunders. HISTORY OF PRESENT ILLNESS: This is a 62-year-old with four day history of dizziness, which is constant, moderate in intensity with vertigo, worse when the patient moves. No hearing loss, no ringing in the ear and no nasal congestion. No throat pain. PAST MEDICAL HISTORY: As noted in the chart by me. MEDICATIONS: As noted in the chart by me. PHYSICAL EXAMINATION: HEAD: Atraumatic and normocephalic. FACE: Good facial movements bilaterally. CONSTITUTIONAL: Well fed, well nourished. COMMUNICATION: Communicates well and appropriately. EXTERNAL NOSE AND EARS: No masses. No lesions. No erythema. No edema. INTERNAL NOSE: Deviated septum. No masses. No lesions. No erythema. No edema. EARS: TM intact. No fluid behind them. ORAL CAVITY AND OROPHARYNX: No masses. No lesions. No erythema. No edema. LIPS AND GUMS: No masses. No lesions. No erythema. No edema. NECK: Supple. THYROID: No thyromegaly. No goiter. LYMPH NODES: No lymphadenopathy of the neck. Ysabel halpike was attempted, however, the patient could not tolerate it. ASSESSMENT: 1. Dizziness. 2. Deviated septum. PLAN: Recommend Neurology consult. If MRI is normal, the patient can be discharged home and take p.o. adequately and ambulate adequately. Nelson Ball MD [facility]
[2017-10-29] MEDS: Dextrose 5%/0.45% NS 1,000 ML IV SCH ×5 (00:15→22:05)
[2017-10-29] MEDS: Enoxaparin 40 mg Syringe SC SCH (09:13)
[2017-10-29] MEDS: Pantoprazole 40 mg EC Tab PO SCH (09:16)
--- NOTE | 2017-10-29 20:28 | CP.PCM.PN ---
Subjective - Date & Time of Evaluation Date of Evaluation: 10/29/17 Time of Evaluation: 08:30 - Subjective Subjective: clinically same Objective - Vital Signs/Intake and Output Vital Signs (last 24 hours): Temp Pulse Resp BP Pulse Ox 97.9 F 71 20 131/77 96 10/29/17 16:31 10/29/17 16:31 10/29/17 16:31 10/29/17 16:31 10/29/17 16:31 Intake and Output: 10/29/17 10/30/17 18:59 06:59 Intake Total 0 Balance 194 - Medications Medications: Current Medications Clopidogrel Bisulfate (Plavix) 75 mg PO DAILY [facility] Last Admin: 10/29/17 09:16 Dose: 75 mg Enoxaparin Sodium (Lovenox) 40 mg SC DAILY [facility] Last Admin: 10/29/17 09:13 Dose: 40 mg Dextrose/Sodium Chloride (Dextrose 5%/0.45% Ns 1000 Ml) 1,000 mls @ 100 mls/hr IV .Q10H [facility] Last Admin: 10/29/17 18:07 Dose: 100 mls/hr Meclizine HCl (Antivert) 25 mg PO Q8H PRN PRN Reason: Dizziness Last Admin: 10/29/17 14:02 Dose: 25 mg Moxifloxacin HCl (Avelox) 400 mg PO Q24H [facility] Last Admin: 10/29/17 14:10 Dose: 400 mg Ondansetron HCl (Zofran Inj) 4 mg IVP Q6 PRN PRN Reason: Nausea/Vomiting Last Admin: 10/29/17 13:58 Dose: 4 mg Pantoprazole Sodium (Protonix Ec Tab) 40 mg PO DAILY [facility] Last Admin: 10/29/17 09:16 Dose: 40 mg Rosuvastatin Calcium (Crestor) 10 mg PO HS [facility] Last Admin: 10/28/17 21:03 Dose: 10 mg - Labs Labs: 10/25/17 10:42 10/25/17 10:42 PT 10.8 SECONDS (9.7-12.2) 10/25/17 10:42 INR 1.0 10/25/17 10:42 APTT 24 SECONDS (21-34) 10/25/17 10:42
[2017-10-30] MEDS: Dextrose 5%/0.45% NS 1,000 ML IV SCH (06:16)
[2017-10-30 08:21] LABS: BASO % 0.2 % (0.0-2.0); EOS % 0.1 % (0.0-4.0); HEMOGLOBIN 12.3 g/dL (11.0-16.0); LYMPH # 4.2 K/uL (1.0-4.3); LYMPH % 39.2 % (20.0-40.0); MEAN CELL VOLUME 95.4 fL (81.0-99.0); MEAN CORPUSCULAR HEMOGLOBIN 32.8 pg (27.0-31.0); MEAN CORPUSCULAR HGB CONC 34.4 g/dL (33.0-37.0); MEAN PLATELET VOLUME 8.3 fL (7.2-11.7); MONO # 0.7 K/uL (0.0-0.8); MONO % 6.6 % (0.0-10.0); NEUT # 5.7 K/uL (1.8-7.0); NEUT % 53.9 % (50.0-75.0); NRBC % 0.1 % (0.0-2.0); RBC 3.74 Mil/uL (3.80-5.20); RED CELL DISTRIBUTION WIDTH 13.8 % (11.5-14.5)
[2017-10-30 08:28] LABS: WHITE BLOOD COUNT 10.6 K/uL (4.8-10.8)
[2017-10-30 08:45] LABS: BLOOD UREA NITROGEN 14 mg/dL (7-17); CALCIUM 8.3 mg/dl (8.6-10.4); GFR NON-AFRICAN AMERICAN > 60
[2017-10-30] MEDS: Pantoprazole 40 mg EC Tab PO SCH (10:54)
[2017-10-30] MEDS: Enoxaparin 40 mg Syringe SC SCH (10:55)
--- NOTE | 2017-10-30 16:07 | CP.PCM.PN ---
Subjective - Date & Time of Evaluation Date of Evaluation: 10/30/17 Time of Evaluation: 08:30 - Subjective Subjective: clinically same Objective - Vital Signs/Intake and Output Vital Signs (last 24 hours): Temp Pulse Resp BP Pulse Ox 98.9 F 82 20 135/72 97 10/30/17 15:47 10/30/17 15:47 10/30/17 15:47 10/30/17 15:47 10/30/17 15:47 Intake and Output: 10/30/17 10/30/17 06:59 18:59 Intake Total 920 1150 Balance 920 1150 - Medications Medications: Current Medications Clopidogrel Bisulfate (Plavix) 75 mg PO DAILY [facility] Last Admin: 10/30/17 10:54 Dose: 75 mg Enoxaparin Sodium (Lovenox) 40 mg SC DAILY [facility] Last Admin: 10/30/17 10:55 Dose: 40 mg Meclizine HCl (Antivert) 25 mg PO Q8H PRN PRN Reason: Dizziness Last Admin: 10/30/17 10:54 Dose: 25 mg Moxifloxacin HCl (Avelox) 400 mg PO Q24H [facility] Last Admin: 10/30/17 14:31 Dose: 400 mg Ondansetron HCl (Zofran Inj) 4 mg IVP Q6 PRN PRN Reason: Nausea/Vomiting Last Admin: 10/30/17 08:48 Dose: 4 mg Pantoprazole Sodium (Protonix Ec Tab) 40 mg PO DAILY [facility] Last Admin: 10/30/17 10:54 Dose: 40 mg Rosuvastatin Calcium (Crestor) 10 mg PO HS [facility] Last Admin: 10/29/17 22:04 Dose: 10 mg - Labs Labs: 10/30/17 08:13 10/30/17 08:13 PT 10.8 SECONDS (9.7-12.2) 10/25/17 10:42 INR 1.0 10/25/17 10:42 APTT 24 SECONDS (21-34) 10/25/17 10:42
--- NOTE | 2017-10-30 17:57 | CP.PCM.PN ---
Subjective - Date & Time of Evaluation Date of Evaluation: 10/30/17 Time of Evaluation: 11:00 - Subjective Subjective: Alert, awake, no sob or chest pains. Has some unsteadiness and dizziness when out of bed. Objective - Vital Signs/Intake and Output Vital Signs (last 24 hours): Temp Pulse Resp BP Pulse Ox 98.9 F 82 20 135/72 97 10/30/17 15:47 10/30/17 15:47 10/30/17 15:47 10/30/17 15:47 10/30/17 15:47 Intake and Output: 10/30/17 10/30/17 06:59 18:59 Intake Total 920 1150 Balance 920 1150 - Medications Medications: Current Medications Clopidogrel Bisulfate (Plavix) 75 mg PO DAILY [facility] Last Admin: 10/30/17 10:54 Dose: 75 mg Enoxaparin Sodium (Lovenox) 40 mg SC DAILY [facility] Last Admin: 10/30/17 10:55 Dose: 40 mg Meclizine HCl (Antivert) 25 mg PO Q8H PRN PRN Reason: Dizziness Last Admin: 10/30/17 10:54 Dose: 25 mg Moxifloxacin HCl (Avelox) 400 mg PO Q24H [facility] Last Admin: 10/30/17 14:31 Dose: 400 mg Ondansetron HCl (Zofran Inj) 4 mg IVP Q6 PRN PRN Reason: Nausea/Vomiting Last Admin: 10/30/17 08:48 Dose: 4 mg Pantoprazole Sodium (Protonix Ec Tab) 40 mg PO DAILY [facility] Last Admin: 10/30/17 10:54 Dose: 40 mg Rosuvastatin Calcium (Crestor) 10 mg PO HS [facility] Last Admin: 10/29/17 22:04 Dose: 10 mg - Labs Labs: 10/30/17 08:13 10/30/17 08:13 PT 10.8 SECONDS (9.7-12.2) 10/25/17 10:42 INR 1.0 10/25/17 10:42 APTT 24 SECONDS (21-34) 10/25/17 10:42 Assessment and Plan - Assessment and Plan (Free Text) Assessment: Patient admitted with dizziness and headaches, seen and examined. Feeling better but still with some unsteady gait. Discussed with DR Nickolas Saunders, plan to transfer to [facility] for physical therapy. Will continue with meclizine prn.
[2017-10-31 01:23] VITALS: BP 112/73; PULSE 72; TEMP 97.7; O2SAT 98
== END 2017-10-31 01:00 | DRG 149 ==
LOC: C.ER 09:57 → C.9E 14:06 → C.3T 15:39 → OBSVTOIN 10-27 15:54
PROVIDERS: ADMIT Internal Medicine Nephrology; ATTEND Internal Medicine Nephrology
DX: H81.10 Benign paroxysmal vertigo, unspecified ear (principal); N39.0 Urinary tract infection, site not specified; I10 Essential (primary) hypertension; J34.2 Deviated nasal septum; J45.909 Unspecified asthma, uncomplicated; Z98.84 Bariatric surgery status; R42 Dizziness and giddiness